=== PATIENT | male | born 1980 | race African-American/Black ===

== ENCOUNTER 2017-07-30 18:23 | Inpatient (IN) | payer OTHER ==
[2017-07-30] MEDS ORDERED: Sodium Chloride 0.9% 10 ML Syringe FLUSH PRN (18:35)
[2017-07-30] MEDS ORDERED: Sodium Chloride 0.9% 2,000 ML IV ONE (18:36)
--- NOTE | 2017-07-30 19:09 | EDM.PDOC ---
<ElsyBlue Gerardo - Last Filed: 07/30/17 22:42> ED HPI GENERAL MEDICAL PROBLEM - General Chief Complaint: Gastrointestinal Problem Stated Complaint: [facility] Time Seen by Provider: 07/30/17 18:35 - Related Data Allergies Allergy/AdvReac Type Severity Reaction Status Date / Time No Known Allergies Allergy Verified 07/30/17 19:25 Home Meds: Home Meds . [No Known Home Meds] 07/30/17 [History] Course - Vital Signs Last Recorded V/S: Last Vital Signs Temp 37.3 C 07/30/17 22:13 Pulse 120 H 07/31/17 06:46 Resp 20 07/31/17 04:00 BP 106/66 07/31/17 06:46 Pulse Ox 99 07/31/17 04:00 Orthostatic Blood Pressure [ 114/80 Standing] Orthostatic Blood Pressure [ 127/88 Sitting] Orthostatic Blood Pressure [ 128/75 Supine] - Orders/Labs/Meds Orders: Active Orders 24 hr Category Date Time Status Antiembolic Devices [RC] QSHIFT Care 07/30/17 22:14 Active Cardiac Monitoring [RC] CONTINUOUS Care 07/30/17 22:13 Active Height and Weight [RC] 04 Care 07/30/17 22:13 Active Intake and Output [RC] 04,16 Care 07/30/17 22:13 Active Notify Provider Consults [RC] ASDIRECTED Care 07/30/17 22:17 Active Oxygen Therapy [RC] PRN Care 07/30/17 22:13 Active Peripheral IV Care [RC] . DIRECTED Care 07/30/17 18:36 Active RT Aerosol Therapy [RC] ASDIRECTED Care 07/30/17 22:15 Active Up With Assistance [RC] ASDIRECTED Care 07/30/17 22:13 Active Up ad Theresa [RC] ASDIRECTED Care 07/30/17 22:13 Active VTE/DVT Education [RC] PER UNIT ROUTINE Care 07/30/17 22:13 Active Vital Signs [RC] Q4HR Care 07/30/17 22:13 Active Consult to Case Management [CONS] Routine Cons 07/30/17 22:16 Active Consult to Physician [CONS] Routine Cons 07/30/17 22:16 Active Consult to Flat Examiner [CONS] Routine Cons 07/30/17 22:16 Active Consult to Spiritual Care [CONS] Routine Cons 07/30/17 22:16 Active Nothing per Oral Now Diet [DIET] Diet 07/30/17 Dinner Active Abdomen Series w Chest 1V [CR] Stat Exams 07/30/17 18:37 Taken COMPREHENSIVE METABOLIC PN,CMP [CHEM] AM Lab 07/31/17 06:18 Received COMPREHENSIVE METABOLIC PN,CMP [CHEM] AM Lab 08/01/17 05:11 Ordered COMPREHENSIVE METABOLIC PN,CMP [CHEM] AM Lab 08/02/17 05:11 Ordered COMPREHENSIVE METABOLIC PN,CMP [CHEM] AM Lab 08/03/17 05:11 Ordered CULTURE BLOOD [BC] Stat Lab 07/30/17 18:52 Received CULTURE BLOOD [BC] Stat Lab 07/30/17 23:05 Results CULTURE STOOL + SHIGATOX [RM] Stat Lab 07/30/17 20:52 Results HEMOGLOBIN/HEMATOCRIT,HH [HEME] Routine Lab 07/31/17 12:00 Ordered MAGNESIUM [CHEM] AM Lab 07/31/17 06:18 Received MAGNESIUM [CHEM] AM Lab 08/01/17 05:11 Ordered MAGNESIUM [CHEM] AM Lab 08/02/17 05:11 Ordered MAGNESIUM [CHEM] AM Lab 08/03/17 05:11 Ordered Acetaminophen [Tylenol] Med 07/30/17 22:13 Active 650 mg PO Q4H PRN Acetaminophen/HYDROcodone [[place] 325-5 MG] Med 07/30/17 22:13 Active 1 tab PO Q4H PRN Albuterol/Ipratropium [DuoNeb 3.0-0.5 MG/3 ML] Med 07/30/17 22:13 Active 3 ml NEB Q4H PRN Dextrose 5%-0.45% NaCl [Dextrose 5%-1/2 NS] 1,000 ml Med 07/30/17 22:15 Active IV ASDIRECTED HYDROmorphone [Dilaudid] Med 07/30/17 22:13 Active 1 mg IVPUSH Q3H PRN LORazepam [Ativan] Med 07/30/17 22:13 Active 1 mg IV Q6H PRN LORazepam [Ativan] Med 07/30/17 22:18 Active 2 mg IVPUSH Q4H PRN Magnesium Rep Pharmacy to Dose [Pharmacy to Dose - Med 07/30/17 22:30 Active Magnesium Replacement] 1 dose .XX ASDIRECTED Metoprolol Tartrate [Lopressor] Med 07/30/17 22:18 Active 5 mg IVPUSH Q4H PRN Ondansetron [Zofran] Med 07/30/17 22:13 Active 4 mg IV Q6H PRN Pantoprazole [ProTONIX IV] Med 07/31/17 09:00 Active 40 mg IV Q12HR Potassium Rep Pharmacy to Dose [Pharmacy to Dose - Med 07/30/17 22:30 Active Potassium Replacement] 1 dose .XX ASDIRECTED Promethazine [Phenergan] 12.5 mg Med 07/30/17 22:13 Active Sodium Chloride 0.9% [Normal Saline] 50 ml IV Q6H Sodium Chloride 0.9% [Saline Flush] Med 07/30/17 18:35 Active 10 ml FLUSH ASDIRECTED PRN Temazepam [Restoril] Med 07/30/17 22:13 Active 15 mg PO BEDTIME PRN hydrALAZINE [Apresoline] Med 07/30/17 22:18 Active 20 mg IVPUSH Q4H PRN Blood Culture x2 Reflex Set [OM.PC] Stat Ot 07/30/17 18:35 Ordered NG [Nasogastric Orogastric Tube Insertion] [OM.PC] Ot 07/30/17 21:06 Ordered Routine Peripheral IV Insertion Adult [OM.PC] Routine Ot 07/30/17 18:35 Ordered Sequential Compression Device [OM.PC] Per Unit Routine Ot 07/30/17 22:13 Ordered Resuscitation Status Routine Resus Stat 07/30/17 22:13 Ordered Medication Orders Acetaminophen (Tylenol) 650 mg PO Q4H PRN PRN Reason: Pain (Mild 1-3)/fever Hydrocodone Bitart/Acetaminophen ([place] 325-5 Mg) 1 tab PO Q4H PRN PRN Reason: Pain (moderate 4-6) Albuterol/Ipratropium (Duoneb 3.0-0.5 Mg/3 Ml) 3 ml NEB Q4H PRN PRN Reason: Shortness Of Breath/wheezing Hydralazine HCl (Apresoline) 20 mg IVPUSH Q4H PRN PRN Reason: Hypertension Hydromorphone HCl (Dilaudid) 1 mg IVPUSH Q3H PRN PRN Reason: Pain (severe 7-10) Dextrose/Sodium Chloride (Dextrose 5%-1/2 Ns) 1,000 mls @ 125 mls/hr IV ASDIRECTED FLAKO Last Admin: 07/31/17 02:31 Dose: 125 mls/hr Promethazine HCl 12.5 mg/ (Sodium Chloride) 50.5 mls @ 100 mls/hr IV Q6H PRN PRN Reason: Nausea/Vomiting Lorazepam (Ativan) 1 mg IV Q6H PRN PRN Reason: Anxiety Last Admin: 07/31/17 06:16 Dose: 1 mg Admin: 07/30/17 23:26 Dose: 1 mg Lorazepam (Ativan) 2 mg IVPUSH Q4H PRN PRN Reason: Seizures Magnesium Sulfate (Pharmacy To Dose - Magnesium Replacement) 1 dose .XX ASDIRECTED [facility] Metoprolol Tartrate (Lopressor) 5 mg IVPUSH Q4H PRN PRN Reason: Tachycardia Last Admin: 07/31/17 06:46 Dose: 5 mg Admin: 07/30/17 23:54 Dose: 5 mg Ondansetron HCl (Zofran) 4 mg IV Q6H PRN PRN Reason: Nausea/Vomiting Pantoprazole Sodium (Protonix Iv) 40 mg IV Q12HR [facility] Potassium Chloride (Pharmacy To Dose - Potassium Replacement) 1 dose .XX ASDIRECTED [facility] Sodium Chloride (Saline Flush) 10 ml FLUSH ASDIRECTED PRN PRN Reason: Keep Vein Open Last Admin: 07/30/17 18:49 Dose: 10 ml Temazepam (Restoril) 15 mg PO BEDTIME PRN PRN Reason: Sleep Labs: Laboratory Tests 07/30/17 07/30/17 07/30/17 Range/Units 18:52 18:52 18:52 WBC 12.47 H (4.23-9.07) K/mm3 RBC 3.26 L (4.63-6.08) M/mm3 Hgb 10.3 L (13.7-17.5) gm/L Hct 30.1 L (40.1-51.0) % MCV 92.3 H (79.0-92.2) fl MCH 31.6 (25.7-32.2) pg MCHC 34.2 (32.2-35.5) g/dl RDW Std Deviation 38.8 (35.1-43.9) fL Plt Count 314 (163-337) K/mm3 MPV 9.7 (9.4-12.3) fl Neut % (Auto) 68.8 H (34.0-67.9) % Lymph % (Auto) 21.1 L (21.8-53.1) % [place] % (Auto) 9.1 (5.3-12.2) % Eos % (Auto) 0.6 L (0.8-7.0) Baso % (Auto) 0.2 (0.1-1.2) % Neut # (Auto) 8.59 H (1.78-5.38) K/mm3 Lymph # (Auto) 2.63 (1.32-3.57) K/mm3 [place] # (Auto) 1.13 H (0.30-0.82) K/mm3 Eos # (Auto) 0.07 (0.04-0.54) K/mm3 Baso # (Auto) 0.02 (0.01-0.08) K/mm3 PT 11.9 (8.0-13.0) SECONDS INR 1.09 APTT (22-36) SECONDS D-Dimer, Quantitative 0.37 (0.19-0.59) mg/L Sodium 137 (136-145) mEq/L Potassium 3.6 (3.5-5.1) mEq/L Chloride 105 (98-107) mEq/L Carbon Dioxide 23 (21-32) mEq/L Anion Gap 12.6 (5-15) BUN 28 H (7-18) mg/dL Creatinine 1.4 H (0.7-1.3) mg/dL Est Cr Clr Drug Dosing 70.57 mL/min Estimated GFR (MDRD) > 60 (>60) mL/min BUN/Creatinine Ratio 20.0 H (14-18) Glucose 136 H (74-106) mg/dL Lactic Acid (0.4-2.0) mmol/L Calcium 8.4 L (8.5-10.1) mg/dL Magnesium (1.8-2.4) mg/dl Total Bilirubin 0.3 (0.2-1.0) mg/dL AST 17 (15-37) U/L ALT 40 (16-63) U/L Alkaline Phosphatase 64 (46-116) U/L Troponin I 0.024 (0.00-0.056) ng/mL Total Protein 5.9 L (6.4-8.2) g/dl Albumin 2.8 L (3.4-5.0) g/dl Globulin 3.1 gm/dL Albumin/Globulin Ratio 0.9 L (1-2) Lipase (73-393) U/L Urine Color (Yellow) Urine Appearance (Clear) Urine pH (5.0-8.0) Ur Specific [place] (1.005-1.030) Urine Protein (Negative) Urine Glucose (UA) (Negative) Urine Ketones (Negative) Urine Occult Blood (Negative) Urine Nitrite (Negative) Urine Bilirubin (Negative) Urine Urobilinogen (0.2-1.0) Ur Leukocyte Esterase (Negative) Urine RBC (0-5) /hpf Urine WBC (0-5) /hpf Ur Epithelial Cells (0-5) /hpf Urine Bacteria (FEW) /hpf Urine Mucus (FEW) /hpf Salicylates (2.8-20) mg/dL Urine Opiates Screen (NEGATIVE) Ur Buprenorphine Scrn (NEGATIVE) Ur Oxycodone Screen (NEGATIVE) Urine Methadone Screen (NEGATIVE) Ur Propoxyphene Screen (NEGATIVE) Acetaminophen (10-30) ug/mL Ur Barbiturates Screen (NEGATIVE) Ur Tricyclics Screen (NEGATIVE) Ur Phencyclidine Scrn (NEGATIVE) Ur Amphetamine Screen (NEGATIVE) U Methamphetamines Scrn (NEGATIVE) U Benzodiazepines Scrn (NEGATIVE) U Cocaine Metab Screen (NEGATIVE) U Marijuana (THC) Screen (NEGATIVE) Ethyl Alcohol < 0.03 (0.00) gm% C.difficile 027-NAP1-B1 C. difficile Tox (PCR) Blood Type Gel Antibody Screen 07/30/17 07/30/17 07/30/17 Range/Units 18:52 18:52 18:52 WBC (4.23-9.07) K/mm3 RBC (4.63-6.08) M/mm3 Hgb (13.7-17.5) gm/L Hct (40.1-51.0) % MCV (79.0-92.2) fl MCH (25.7-32.2) pg MCHC (32.2-35.5) g/dl RDW Std Deviation (35.1-43.9) fL Plt Count (163-337) K/mm3 MPV (9.4-12.3) fl Neut % (Auto) (34.0-67.9) % Lymph % (Auto) (21.8-53.1) % [place] % (Auto) (5.3-12.2) % Eos % (Auto) (0.8-7.0) Baso % (Auto) (0.1-1.2) % Neut # (Auto) (1.78-5.38) K/mm3 Lymph # (Auto) (1.32-3.57) K/mm3 [place] # (Auto) (0.30-0.82) K/mm3 Eos # (Auto) (0.04-0.54) K/mm3 Baso # (Auto) (0.01-0.08) K/mm3 PT (8.0-13.0) SECONDS INR APTT 23 (22-36) SECONDS D-Dimer, Quantitative (0.19-0.59) mg/L Sodium (136-145) mEq/L Potassium (3.5-5.1) mEq/L Chloride (98-107) mEq/L Carbon Dioxide (21-32) mEq/L Anion Gap (5-15) BUN (7-18) mg/dL Creatinine (0.7-1.3) mg/dL Est Cr Clr Drug Dosing mL/min Estimated GFR (MDRD) (>60) mL/min BUN/Creatinine Ratio (14-18) Glucose (74-106) mg/dL Lactic Acid 2.9 H (0.4-2.0) mmol/L Calcium (8.5-10.1) mg/dL Magnesium (1.8-2.4) mg/dl Total Bilirubin (0.2-1.0) mg/dL AST (15-37) U/L ALT (16-63) U/L Alkaline Phosphatase (46-116) U/L Troponin I (0.00-0.056) ng/mL Total Protein (6.4-8.2) g/dl Albumin (3.4-5.0) g/dl Globulin gm/dL Albumin/Globulin Ratio (1-2) Lipase (73-393) U/L Urine Color (Yellow) Urine Appearance (Clear) Urine pH (5.0-8.0) Ur Specific [place] (1.005-1.030) Urine Protein (Negative) Urine Glucose (UA) (Negative) Urine Ketones (Negative) Urine Occult Blood (Negative) Urine Nitrite (Negative) Urine Bilirubin (Negative) Urine Urobilinogen (0.2-1.0) Ur Leukocyte Esterase (Negative) Urine RBC (0-5) /hpf Urine WBC (0-5) /hpf Ur Epithelial Cells (0-5) /hpf Urine Bacteria (FEW) /hpf Urine Mucus (FEW) /hpf Salicylates (2.8-20) mg/dL Urine Opiates Screen (NEGATIVE) Ur Buprenorphine Scrn (NEGATIVE) Ur Oxycodone Screen (NEGATIVE) Urine Methadone Screen (NEGATIVE) Ur Propoxyphene Screen (NEGATIVE) Acetaminophen (10-30) ug/mL Ur Barbiturates Screen (NEGATIVE) Ur Tricyclics Screen (NEGATIVE) Ur Phencyclidine Scrn (NEGATIVE) Ur Amphetamine Screen (NEGATIVE) U Methamphetamines Scrn (NEGATIVE) U Benzodiazepines Scrn (NEGATIVE) U Cocaine Metab Screen (NEGATIVE) U Marijuana (THC) Screen (NEGATIVE) Ethyl Alcohol (0.00) gm% C.difficile 027-NAP1-B1 C. difficile Tox (PCR) Blood Type A POSITIVE Gel Antibody Screen Negative 07/30/17 07/30/17 07/30/17 Range/Units 18:52 18:52 20:52 WBC (4.23-9.07) K/mm3 RBC (4.63-6.08) M/mm3 Hgb (13.7-17.5) gm/L Hct (40.1-51.0) % MCV (79.0-92.2) fl MCH (25.7-32.2) pg MCHC (32.2-35.5) g/dl RDW Std Deviation (35.1-43.9) fL Plt Count (163-337) K/mm3 MPV (9.4-12.3) fl Neut % (Auto) (34.0-67.9) % Lymph % (Auto) (21.8-53.1) % [place] % (Auto) (5.3-12.2) % Eos % (Auto) (0.8-7.0) Baso % (Auto) (0.1-1.2) % Neut # (Auto) (1.78-5.38) K/mm3 Lymph # (Auto) (1.32-3.57) K/mm3 [place] # (Auto) (0.30-0.82) K/mm3 Eos # (Auto) (0.04-0.54) K/mm3 Baso # (Auto) (0.01-0.08) K/mm3 PT (8.0-13.0) SECONDS INR APTT (22-36) SECONDS D-Dimer, Quantitative (0.19-0.59) mg/L Sodium (136-145) mEq/L Potassium (3.5-5.1) mEq/L Chloride (98-107) mEq/L Carbon Dioxide (21-32) mEq/L Anion Gap (5-15) BUN (7-18) mg/dL Creatinine (0.7-1.3) mg/dL Est Cr Clr Drug Dosing mL/min Estimated GFR (MDRD) (>60) mL/min BUN/Creatinine Ratio (14-18) Glucose (74-106) mg/dL Lactic Acid (0.4-2.0) mmol/L Calcium (8.5-10.1) mg/dL Magnesium 1.7 L (1.8-2.4) mg/dl Total Bilirubin (0.2-1.0) mg/dL AST (15-37) U/L ALT (16-63) U/L Alkaline Phosphatase (46-116) U/L Troponin I (0.00-0.056) ng/mL Total Protein (6.4-8.2) g/dl Albumin (3.4-5.0) g/dl Globulin gm/dL Albumin/Globulin Ratio (1-2) Lipase 73 (73-393) U/L Urine Color (Yellow) Urine Appearance (Clear) Urine pH (5.0-8.0) Ur Specific [place] (1.005-1.030) Urine Protein (Negative) Urine Glucose (UA) (Negative) Urine Ketones (Negative) Urine Occult Blood (Negative) Urine Nitrite (Negative) Urine Bilirubin (Negative) Urine Urobilinogen (0.2-1.0) Ur Leukocyte Esterase (Negative) Urine RBC (0-5) /hpf Urine WBC (0-5) /hpf Ur Epithelial Cells (0-5) /hpf Urine Bacteria (FEW) /hpf Urine Mucus (FEW) /hpf Salicylates 0.8 L (2.8-20) mg/dL Urine Opiates Screen (NEGATIVE) Ur Buprenorphine Scrn (NEGATIVE) Ur Oxycodone Screen (NEGATIVE) Urine Methadone Screen (NEGATIVE) Ur Propoxyphene Screen (NEGATIVE) Acetaminophen 3 L (10-30) ug/mL Ur Barbiturates Screen (NEGATIVE) Ur Tricyclics Screen (NEGATIVE) Ur Phencyclidine Scrn (NEGATIVE) Ur Amphetamine Screen (NEGATIVE) U Methamphetamines Scrn (NEGATIVE) U Benzodiazepines Scrn (NEGATIVE) U Cocaine Metab Screen (NEGATIVE) U Marijuana (THC) Screen (NEGATIVE) Ethyl Alcohol (0.00) gm% C.difficile 027-NAP1-B1 Presumptive negative C. difficile Tox (PCR) Negative Blood Type Gel Antibody Screen 07/30/17 07/30/17 Range/Units 21:00 21:00 WBC (4.23-9.07) K/mm3 RBC (4.63-6.08) M/mm3 Hgb (13.7-17.5) gm/L Hct (40.1-51.0) % MCV (79.0-92.2) fl MCH (25.7-32.2) pg MCHC (32.2-35.5) g/dl RDW Std Deviation (35.1-43.9) fL Plt Count (163-337) K/mm3 MPV (9.4-12.3) fl Neut % (Auto) (34.0-67.9) % Lymph % (Auto) (21.8-53.1) % [place] % (Auto) (5.3-12.2) % Eos % (Auto) (0.8-7.0) Baso % (Auto) (0.1-1.2) % Neut # (Auto) (1.78-5.38) K/mm3 Lymph # (Auto) (1.32-3.57) K/mm3 [place] # (Auto) (0.30-0.82) K/mm3 Eos # (Auto) (0.04-0.54) K/mm3 Baso # (Auto) (0.01-0.08) K/mm3 PT (8.0-13.0) SECONDS INR APTT (22-36) SECONDS D-Dimer, Quantitative (0.19-0.59) mg/L Sodium (136-145) mEq/L Potassium (3.5-5.1) mEq/L Chloride (98-107) mEq/L Carbon Dioxide (21-32) mEq/L Anion Gap (5-15) BUN (7-18) mg/dL Creatinine (0.7-1.3) mg/dL Est Cr Clr Drug Dosing mL/min Estimated GFR (MDRD) (>60) mL/min BUN/Creatinine Ratio (14-18) Glucose (74-106) mg/dL Lactic Acid (0.4-2.0) mmol/L Calcium (8.5-10.1) mg/dL Magnesium (1.8-2.4) mg/dl Total Bilirubin (0.2-1.0) mg/dL AST (15-37) U/L ALT (16-63) U/L Alkaline Phosphatase (46-116) U/L Troponin I (0.00-0.056) ng/mL Total Protein (6.4-8.2) g/dl Albumin (3.4-5.0) g/dl Globulin gm/dL Albumin/Globulin Ratio (1-2) Lipase (73-393) U/L Urine Color Yellow (Yellow) Urine Appearance Clear (Clear) Urine pH 6.0 (5.0-8.0) Ur Specific [place] 1.025 (1.005-1.030) Urine Protein Trace H (Negative) Urine Glucose (UA) Negative (Negative) Urine Ketones Negative (Negative) Urine Occult Blood Negative (Negative) Urine Nitrite Negative (Negative) Urine Bilirubin Negative (Negative) Urine Urobilinogen 0.2 (0.2-1.0) Ur Leukocyte Esterase Negative (Negative) Urine RBC 0-5 (0-5) /hpf Urine WBC 0-5 (0-5) /hpf Ur Epithelial Cells 0-5 (0-5) /hpf Urine Bacteria Few (FEW) /hpf Urine Mucus Few (FEW) /hpf Salicylates (2.8-20) mg/dL Urine Opiates Screen Negative (NEGATIVE) Ur Buprenorphine Scrn Negative (NEGATIVE) Ur Oxycodone Screen Negative (NEGATIVE) Urine Methadone Screen Negative (NEGATIVE) Ur Propoxyphene Screen Negative (NEGATIVE) Acetaminophen (10-30) ug/mL Ur Barbiturates Screen Negative (NEGATIVE) Ur Tricyclics Screen Negative (NEGATIVE) Ur Phencyclidine Scrn Negative (NEGATIVE) Ur Amphetamine Screen Negative (NEGATIVE) U Methamphetamines Scrn Negative (NEGATIVE) U Benzodiazepines Scrn Negative (NEGATIVE) U Cocaine Metab Screen Negative (NEGATIVE) U Marijuana (THC) Screen Presumptive positive H (NEGATIVE) Ethyl Alcohol (0.00) gm% C.difficile 027-NAP1-B1 C. difficile Tox (PCR) Blood Type Gel Antibody Screen Meds: Medications Generic Name Dose Route Start Last Admin Trade Name Freq PRN Reason Stop Dose Admin Acetaminophen 650 mg 07/30/17 22:13 Tylenol PO Q4H PRN Pain (Mild 1-3)/fever Hydrocodone Bitart/Acetaminophen 1 tab 07/30/17 22:13 [place] 325-5 Mg PO Q4H PRN Pain (moderate 4-6) Albuterol/Ipratropium 3 ml 07/30/17 22:13 Duoneb 3.0-0.5 Mg/3 Ml NEB Q4H PRN Shortness Of Breath/wheezing Hydralazine HCl 20 mg 07/30/17 22:18 Apresoline IVPUSH Q4H PRN Hypertension Hydromorphone HCl 1 mg 07/30/17 22:13 Dilaudid IVPUSH Q3H PRN Pain (severe 7-10) Dextrose/Sodium Chloride 1,000 mls @ 125 mls/hr 07/30/17 22:15 07/31/17 02:31 Dextrose 5%-1/2 Ns IV 125 mls/hr ASDIRECTED FLAKO Administration Promethazine HCl 12.5 mg/ 50.5 mls @ 100 mls/hr 07/30/17 22:13 Sodium Chloride IV Q6H PRN Nausea/Vomiting Lorazepam 1 mg 07/30/17 22:13 07/31/17 06:16 Ativan IV 1 mg Q6H PRN Administration Anxiety Lorazepam 2 mg 07/30/17 22:18 Ativan IVPUSH Q4H PRN Seizures Magnesium Sulfate 1 dose 07/30/17 22:30 Pharmacy To Dose - Magnesium Replacement .XX ASDIRECTED FLAKO Metoprolol Tartrate 5 mg 07/30/17 22:18 07/31/17 06:46 Lopressor IVPUSH 5 mg Q4H PRN Administration Tachycardia Ondansetron HCl 4 mg 07/30/17 22:13 Zofran IV Q6H PRN Nausea/Vomiting Pantoprazole Sodium 40 mg 07/31/17 09:00 Protonix Iv IV Q12HR FLAKO Potassium Chloride 1 dose 07/30/17 22:30 Pharmacy To Dose - Potassium Replacement .XX ASDIRECTED FLAKO Sodium Chloride 10 ml 07/30/17 18:35 07/30/17 18:49 Saline Flush FLUSH 10 ml ASDIRECTED PRN Administration Keep Vein Open Temazepam 15 mg 07/30/17 22:13 Restoril PO BEDTIME PRN Sleep Discontinued Medications Generic Name Dose Route Start Last Admin Trade Name Freq PRN Reason Stop Dose Admin Sodium Chloride 2,000 mls @ 2,000 mls/hr 07/30/17 18:36 07/30/17 18:48 Normal Saline IV 07/30/17 19:35 2,000 mls/hr ONETIME ONE Administration Lactated Ringer's 1,000 mls @ 250 mls/hr 07/30/17 20:45 07/30/17 21:45 Ringers, Lactated IV 07/31/17 00:45 250 mls/hr ASDIRECTED FLAKO Administration Pantoprazole Sodium 80 mg/ 100 mls @ 10 mls/hr 07/30/17 21:15 07/30/17 21:52 Sodium Chloride IV 8 mg/hr Q10H FLAKO 10 mls/hr 8 MG/HR Administration Magnesium Sulfate 2 gm/ Premix 50 mls @ 25 mls/hr 07/30/17 22:22 07/30/17 23: 24 IV 07/31/17 00:21 25 mls/hr ONETIME ONE Administration Pantoprazole Sodium 80 mg 07/30/17 19:15 07/30/17 19:23 Protonix Iv IVPUSH 07/30/17 19:16 80 mg .BOLUS ONE Administration - Re-Assessments/Exams Free Text/Narrative Re-Assessment/Exam: 07/30/17 20:10 Assumed care of the patient from Dr. Beata Phillip. The patient is orthostatic. He is currently receiving a 2 L IV fluid bolus. 07/30/17 20:30 Abdominal series with portable chest radiograph appears to be grossly unremarkable. Cardiac silhouette is within normal limits. No pulmonary vascular congestion. No pleural effusions. No focal infiltrate. No pneumothorax. Nonspecific bowel gas pattern. No free air. Formal read per the Radiologist pending. 07/30/17 22:02 Notified by nurse Marietta that the NG tube is draining a mixture of red blood and coffee grounds, confirming an upper GI bleed. The stool sample that was sent to the lab will be tested for C. difficile, however, it will not be ready until 23:00 or so. I asked the lab to notify the floor if positive. Case discussed with Dr. Maldonado at 21:59. He accepts the patient for admission to the ICU. Departure - Departure Time of Disposition: 22:02 Disposition: Admitted As Inpatient 67 Condition: Serious Clinical Impression: Upper GI bleed, Orthostatic hypotension - Discharge Information - My Orders Last 24 Hours: My Active Orders 07/30/17 18:35 Sodium Chloride 0.9% [Saline Flush] 10 ml FLUSH ASDIRECTED PRN Blood Culture x2 Reflex Set [OM.PC] Stat Peripheral IV Insertion Adult [OM.PC] Routine 07/30/17 18:36 Peripheral IV Care [RC] . DIRECTED 07/30/17 18:37 Abdomen Series w Chest 1V [CR] Stat 07/30/17 18:52 CULTURE BLOOD [BC] Stat 07/30/17 20:52 CULTURE STOOL + SHIGATOX [RM] Stat 07/30/17 23:05 CULTURE BLOOD [BC] Stat - Assessment/Plan Last 24 Hours: My Active Orders 07/30/17 18:35 Sodium Chloride 0.9% [Saline Flush] 10 ml FLUSH ASDIRECTED PRN Blood Culture x2 Reflex Set [OM.PC] Stat Peripheral IV Insertion Adult [OM.PC] Routine 07/30/17 18:36 Peripheral IV Care [RC] . DIRECTED 07/30/17 18:37 Abdomen Series w Chest 1V [CR] Stat 07/30/17 18:52 CULTURE BLOOD [BC] Stat 07/30/17 20:52 CULTURE STOOL + SHIGATOX [RM] Stat 07/30/17 23:05 CULTURE BLOOD [BC] Stat <Mercedes Kirkland - Last Filed: 07/31/17 07:43> ED HPI GENERAL MEDICAL PROBLEM - General Source of Information: Reports: Patient History Limitations: Reports: No Limitations - History of Present Illness INITIAL COMMENTS - FREE TEXT/NARRATIVE: The patient is a 37-year-old male who is brought in by ambulance from [facility] for an episode of near syncope. According to the patient, he's been feeling ill since last night. He has had vomiting and diarrhea last night and today. He states that he had about 5 episodes of vomiting and diarrhea last night. At some point noticed blood in both the vomit and the stool, not able to distinguish whether this is been continuous or started after vomiting. He also has abdominal pain. Abdominal pain is diffuse and crampy. No fever. Feels generally weak. According to [facility] staff, the patient was in bed most of today. He got up to go to the bathroom, felt lightheaded, and nearly passed out. He didn't fall. He did not hit his head. When EMS arrived at the scene, his heart rate was in the 170s. Per EMS, initial blood pressure was 80s over 50s. The patient states that he has been having some chest pain over the last week or 2 as well, this is a vague substernal discomfort, "feels like a hole in my heart" . Denies shortness of breath. Nursing Home staff has been giving aspirin. No recent travel. No known exposure to contaminated food or water. Patient denies history of similar symptoms previously. Denies additional blood thinner use. 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 Denies: Fever HEENT: Reports: No Symptoms Respiratory: Denies: Shortness of Breath Cardiovascular: Reports: Chest Pain Endocrine: Reports: Fatigue GI/Abdominal: Reports: Abdominal Pain, Bloody Stool, Diarrhea, Vomiting : Reports: No Symptoms Musculoskeletal: Reports: No Symptoms Skin: Reports: No Symptoms Neurological: Reports: No Symptoms ED EXAM, GI/ABD - Physical Exam Exam: See Below Exam Limited By: No Limitations General Appearance: Alert, Mild Distress, Other Eyes: Bilateral: Normal Appearance Ears: Normal External Exam Nose: Normal Inspection Throat/Mouth: Normal Inspection, Normal Voice, No Airway Compromise Head: Atraumatic, Normocephalic Neck: Normal Inspection Respiratory/Chest: No Respiratory Distress, Lungs Clear, Normal Breath Sounds Cardiovascular: Tachycardia, Other (Regular rhythm) GI/Abdominal Exam: Soft, Other (Mild tenderness diffusely, no rebound or guarding) Rectal (Males) Exam: Normal Rectal Tone, Heme + Stool, Other (Melanotic stool) Back Exam: Normal Inspection Extremities: Normal Inspection Neurological: Alert, Oriented, Normal Cognition, No Motor/Sensory Deficits Psychiatric: Normal Affect, Normal Mood Skin Exam: Warm, Dry, Intact, Normal Color, No Rash Course - Orders/Labs/Meds Labs: Laboratory Tests 07/30/17 07/30/17 07/30/17 Range/Units 18:52 18:52 18:52 WBC 12.47 H (4.23-9.07) K/mm3 RBC 3.26 L (4.63-6.08) M/mm3 Hgb 10.3 L (13.7-17.5) gm/L Hct 30.1 L (40.1-51.0) % MCV 92.3 H (79.0-92.2) fl MCH 31.6 (25.7-32.2) pg MCHC 34.2 (32.2-35.5) g/dl RDW Std Deviation 38.8 (35.1-43.9) fL Plt Count 314 (163-337) K/mm3 MPV 9.7 (9.4-12.3) fl Neut % (Auto) 68.8 H (34.0-67.9) % Lymph % (Auto) 21.1 L (21.8-53.1) % [place] % (Auto) 9.1 (5.3-12.2) % Eos % (Auto) 0.6 L (0.8-7.0) Baso % (Auto) 0.2 (0.1-1.2) % Neut # (Auto) 8.59 H (1.78-5.38) K/mm3 Lymph # (Auto) 2.63 (1.32-3.57) K/mm3 [place] # (Auto) 1.13 H (0.30-0.82) K/mm3 Eos # (Auto) 0.07 (0.04-0.54) K/mm3 Baso # (Auto) 0.02 (0.01-0.08) K/mm3 PT 11.9 (8.0-13.0) SECONDS INR 1.09 APTT (22-36) SECONDS D-Dimer, Quantitative 0.37 (0.19-0.59) mg/L Sodium 137 (136-145) mEq/L Potassium 3.6 (3.5-5.1) mEq/L Chloride 105 (98-107) mEq/L Carbon Dioxide 23 (21-32) mEq/L Anion Gap 12.6 (5-15) BUN 28 H (7-18) mg/dL Creatinine 1.4 H (0.7-1.3) mg/dL Est Cr Clr Drug Dosing 70.57 mL/min Estimated GFR (MDRD) > 60 (>60) mL/min BUN/Creatinine Ratio 20.0 H (14-18) Glucose 136 H (74-106) mg/dL Lactic Acid (0.4-2.0) mmol/L Calcium 8.4 L (8.5-10.1) mg/dL Magnesium (1.8-2.4) mg/dl Total Bilirubin 0.3 (0.2-1.0) mg/dL AST 17 (15-37) U/L ALT 40 (16-63) U/L Alkaline Phosphatase 64 (46-116) U/L Troponin I 0.024 (0.00-0.056) ng/mL Total Protein 5.9 L (6.4-8.2) g/dl Albumin 2.8 L (3.4-5.0) g/dl Globulin 3.1 gm/dL Albumin/Globulin Ratio 0.9 L (1-2) Lipase (73-393) U/L Urine Color (Yellow) Urine Appearance (Clear) Urine pH (5.0-8.0) Ur Specific [place] (1.005-1.030) Urine Protein (Negative) Urine Glucose (UA) (Negative) Urine Ketones (Negative) Urine Occult Blood (Negative) Urine Nitrite (Negative) Urine Bilirubin (Negative) Urine Urobilinogen (0.2-1.0) Ur Leukocyte Esterase (Negative) Urine RBC (0-5) /hpf Urine WBC (0-5) /hpf Ur Epithelial Cells (0-5) /hpf Urine Bacteria (FEW) /hpf Urine Mucus (FEW) /hpf Salicylates (2.8-20) mg/dL Urine Opiates Screen (NEGATIVE) Ur Buprenorphine Scrn (NEGATIVE) Ur Oxycodone Screen (NEGATIVE) Urine Methadone Screen (NEGATIVE) Ur Propoxyphene Screen (NEGATIVE) Acetaminophen (10-30) ug/mL Ur Barbiturates Screen (NEGATIVE) Ur Tricyclics Screen (NEGATIVE) Ur Phencyclidine Scrn (NEGATIVE) Ur Amphetamine Screen (NEGATIVE) U Methamphetamines Scrn (NEGATIVE) U Benzodiazepines Scrn (NEGATIVE) U Cocaine Metab Screen (NEGATIVE) U Marijuana (THC) Screen (NEGATIVE) Ethyl Alcohol < 0.03 (0.00) gm% C.difficile 027-NAP1-B1 C. difficile Tox (PCR) Blood Type Gel Antibody Screen 07/30/17 07/30/17 07/30/17 Range/Units 18:52 18:52 18:52 WBC (4.23-9.07) K/mm3 RBC (4.63-6.08) M/mm3 Hgb (13.7-17.5) gm/L Hct (40.1-51.0) % MCV (79.0-92.2) fl MCH (25.7-32.2) pg MCHC (32.2-35.5) g/dl RDW Std Deviation (35.1-43.9) fL Plt Count (163-337) K/mm3 MPV (9.4-12.3) fl Neut % (Auto) (34.0-67.9) % Lymph % (Auto) (21.8-53.1) % [place] % (Auto) (5.3-12.2) % Eos % (Auto) (0.8-7.0) Baso % (Auto) (0.1-1.2) % Neut # (Auto) (1.78-5.38) K/mm3 Lymph # (Auto) (1.32-3.57) K/mm3 [place] # (Auto) (0.30-0.82) K/mm3 Eos # (Auto) (0.04-0.54) K/mm3 Baso # (Auto) (0.01-0.08) K/mm3 PT (8.0-13.0) SECONDS INR APTT 23 (22-36) SECONDS D-Dimer, Quantitative (0.19-0.59) mg/L Sodium (136-145) mEq/L Potassium (3.5-5.1) mEq/L Chloride (98-107) mEq/L Carbon Dioxide (21-32) mEq/L Anion Gap (5-15) BUN (7-18) mg/dL Creatinine (0.7-1.3) mg/dL Est Cr Clr Drug Dosing mL/min Estimated GFR (MDRD) (>60) mL/min BUN/Creatinine Ratio (14-18) Glucose (74-106) mg/dL Lactic Acid 2.9 H (0.4-2.0) mmol/L Calcium (8.5-10.1) mg/dL Magnesium (1.8-2.4) mg/dl Total Bilirubin (0.2-1.0) mg/dL AST (15-37) U/L ALT (16-63) U/L Alkaline Phosphatase (46-116) U/L Troponin I (0.00-0.056) ng/mL Total Protein (6.4-8.2) g/dl Albumin (3.4-5.0) g/dl Globulin gm/dL Albumin/Globulin Ratio (1-2) Lipase (73-393) U/L Urine Color (Yellow) Urine Appearance (Clear) Urine pH (5.0-8.0) Ur Specific [place] (1.005-1.030) Urine Protein (Negative) Urine Glucose (UA) (Negative) Urine Ketones (Negative) Urine Occult Blood (Negative) Urine Nitrite (Negative) Urine Bilirubin (Negative) Urine Urobilinogen (0.2-1.0) Ur Leukocyte Esterase (Negative) Urine RBC (0-5) /hpf Urine WBC (0-5) /hpf Ur Epithelial Cells (0-5) /hpf Urine Bacteria (FEW) /hpf Urine Mucus (FEW) /hpf Salicylates (2.8-20) mg/dL Urine Opiates Screen (NEGATIVE) Ur Buprenorphine Scrn (NEGATIVE) Ur Oxycodone Screen (NEGATIVE) Urine Methadone Screen (NEGATIVE) Ur Propoxyphene Screen (NEGATIVE) Acetaminophen (10-30) ug/mL Ur Barbiturates Screen (NEGATIVE) Ur Tricyclics Screen (NEGATIVE) Ur Phencyclidine Scrn (NEGATIVE) Ur Amphetamine Screen (NEGATIVE) U Methamphetamines Scrn (NEGATIVE) U Benzodiazepines Scrn (NEGATIVE) U Cocaine Metab Screen (NEGATIVE) U Marijuana (THC) Screen (NEGATIVE) Ethyl Alcohol (0.00) gm% C.difficile 027-NAP1-B1 C. difficile Tox (PCR) Blood Type A POSITIVE Gel Antibody Screen Negative 07/30/17 07/30/17 07/30/17 Range/Units 18:52 18:52 20:52 WBC (4.23-9.07) K/mm3 RBC (4.63-6.08) M/mm3 Hgb (13.7-17.5) gm/L Hct (40.1-51.0) % MCV (79.0-92.2) fl MCH (25.7-32.2) pg MCHC (32.2-35.5) g/dl RDW Std Deviation (35.1-43.9) fL Plt Count (163-337) K/mm3 MPV (9.4-12.3) fl Neut % (Auto) (34.0-67.9) % Lymph % (Auto) (21.8-53.1) % [place] % (Auto) (5.3-12.2) % Eos % (Auto) (0.8-7.0) Baso % (Auto) (0.1-1.2) % Neut # (Auto) (1.78-5.38) K/mm3 Lymph # (Auto) (1.32-3.57) K/mm3 [place] # (Auto) (0.30-0.82) K/mm3 Eos # (Auto) (0.04-0.54) K/mm3 Baso # (Auto) (0.01-0.08) K/mm3 PT (8.0-13.0) SECONDS INR APTT (22-36) SECONDS D-Dimer, Quantitative (0.19-0.59) mg/L Sodium (136-145) mEq/L Potassium (3.5-5.1) mEq/L Chloride (98-107) mEq/L Carbon Dioxide (21-32) mEq/L Anion Gap (5-15) BUN (7-18) mg/dL Creatinine (0.7-1.3) mg/dL Est Cr Clr Drug Dosing mL/min Estimated GFR (MDRD) (>60) mL/min BUN/Creatinine Ratio (14-18) Glucose (74-106) mg/dL Lactic Acid (0.4-2.0) mmol/L Calcium (8.5-10.1) mg/dL Magnesium 1.7 L (1.8-2.4) mg/dl Total Bilirubin (0.2-1.0) mg/dL AST (15-37) U/L ALT (16-63) U/L Alkaline Phosphatase (46-116) U/L Troponin I (0.00-0.056) ng/mL Total Protein (6.4-8.2) g/dl Albumin (3.4-5.0) g/dl Globulin gm/dL Albumin/Globulin Ratio (1-2) Lipase 73 (73-393) U/L Urine Color (Yellow) Urine Appearance (Clear) Urine pH (5.0-8.0) Ur Specific [place] (1.005-1.030) Urine Protein (Negative) Urine Glucose (UA) (Negative) Urine Ketones (Negative) Urine Occult Blood (Negative) Urine Nitrite (Negative) Urine Bilirubin (Negative) Urine Urobilinogen (0.2-1.0) Ur Leukocyte Esterase (Negative) Urine RBC (0-5) /hpf Urine WBC (0-5) /hpf Ur Epithelial Cells (0-5) /hpf Urine Bacteria (FEW) /hpf Urine Mucus (FEW) /hpf Salicylates 0.8 L (2.8-20) mg/dL Urine Opiates Screen (NEGATIVE) Ur Buprenorphine Scrn (NEGATIVE) Ur Oxycodone Screen (NEGATIVE) Urine Methadone Screen (NEGATIVE) Ur Propoxyphene Screen (NEGATIVE) Acetaminophen 3 L (10-30) ug/mL Ur Barbiturates Screen (NEGATIVE) Ur Tricyclics Screen (NEGATIVE) Ur Phencyclidine Scrn (NEGATIVE) Ur Amphetamine Screen (NEGATIVE) U Methamphetamines Scrn (NEGATIVE) U Benzodiazepines Scrn (NEGATIVE) U Cocaine Metab Screen (NEGATIVE) U Marijuana (THC) Screen (NEGATIVE) Ethyl Alcohol (0.00) gm% C.difficile [id number] Presumptive negative C. difficile Tox (PCR) Negative Blood Type Gel Antibody Screen 07/30/17 07/30/17 Range/Units 21:00 21:00 WBC (4.23-9.07) K/mm3 RBC (4.63-6.08) M/mm3 Hgb (13.7-17.5) gm/L Hct (40.1-51.0) % MCV (79.0-92.2) fl MCH (25.7-32.2) pg MCHC (32.2-35.5) g/dl RDW Std Deviation (35.1-43.9) fL Plt Count (163-337) K/mm3 MPV (9.4-12.3) fl Neut % (Auto) (34.0-67.9) % Lymph % (Auto) (21.8-53.1) % [place] % (Auto) (5.3-12.2) % Eos % (Auto) (0.8-7.0) Baso % (Auto) (0.1-1.2) % Neut # (Auto) (1.78-5.38) K/mm3 Lymph # (Auto) (1.32-3.57) K/mm3 [place] # (Auto) (0.30-0.82) K/mm3 Eos # (Auto) (0.04-0.54) K/mm3 Baso # (Auto) (0.01-0.08) K/mm3 PT (8.0-13.0) SECONDS INR APTT (22-36) SECONDS D-Dimer, Quantitative (0.19-0.59) mg/L Sodium (136-145) mEq/L Potassium (3.5-5.1) mEq/L Chloride (98-107) mEq/L Carbon Dioxide (21-32) mEq/L Anion Gap (5-15) BUN (7-18) mg/dL Creatinine (0.7-1.3) mg/dL Est Cr Clr Drug Dosing mL/min Estimated GFR (MDRD) (>60) mL/min BUN/Creatinine Ratio (14-18) Glucose (74-106) mg/dL Lactic Acid (0.4-2.0) mmol/L Calcium (8.5-10.1) mg/dL Magnesium (1.8-2.4) mg/dl Total Bilirubin (0.2-1.0) mg/dL AST (15-37) U/L ALT (16-63) U/L Alkaline Phosphatase (46-116) U/L Troponin I (0.00-0.056) ng/mL Total Protein (6.4-8.2) g/dl Albumin (3.4-5.0) g/dl Globulin gm/dL Albumin/Globulin Ratio (1-2) Lipase (73-393) U/L Urine Color Yellow (Yellow) Urine Appearance Clear (Clear) Urine pH 6.0 (5.0-8.0) Ur Specific [place] 1.025 (1.005-1.030) Urine Protein Trace H (Negative) Urine Glucose (UA) Negative (Negative) Urine Ketones Negative (Negative) Urine Occult Blood Negative (Negative) Urine Nitrite Negative (Negative) Urine Bilirubin Negative (Negative) Urine Urobilinogen 0.2 (0.2-1.0) Ur Leukocyte Esterase Negative (Negative) Urine RBC 0-5 (0-5) /hpf Urine WBC 0-5 (0-5) /hpf Ur Epithelial Cells 0-5 (0-5) /hpf Urine Bacteria Few (FEW) /hpf Urine Mucus Few (FEW) /hpf Salicylates (2.8-20) mg/dL Urine Opiates Screen Negative (NEGATIVE) Ur Buprenorphine Scrn Negative (NEGATIVE) Ur Oxycodone Screen Negative (NEGATIVE) Urine Methadone Screen Negative (NEGATIVE) Ur Propoxyphene Screen Negative (NEGATIVE) Acetaminophen (10-30) ug/mL Ur Barbiturates Screen Negative (NEGATIVE) Ur Tricyclics Screen Negative (NEGATIVE) Ur Phencyclidine Scrn Negative (NEGATIVE) Ur Amphetamine Screen Negative (NEGATIVE) U Methamphetamines Scrn Negative (NEGATIVE) U Benzodiazepines Scrn Negative (NEGATIVE) U Cocaine Metab Screen Negative (NEGATIVE) U Marijuana (THC) Screen Presumptive positive H (NEGATIVE) Ethyl Alcohol (0.00) gm% C.difficile 027-NAP1-B1 C. difficile Tox (PCR) Blood Type Gel Antibody Screen - Re-Assessments/Exams Free Text/Narrative Re-Assessment/Exam: 07/30/17 19:15 Stool is melanotic. Pantoprazole ordered. Heart rate currently in the 120s, blood pressure is been normal throughout emergency department stay. Patient has not had any bowel movement or vomiting so far while in the department. Labs are all in process. Care will be turned over to Dr. Chin. Critical Care Note - Critical Care Note Total Time (mins): 35
[2017-07-30] MEDS ORDERED: Pantoprazole 40 MG Vial IVPUSH ONE (19:15)
[2017-07-30] MEDS ORDERED: Lactated Ringers 1,000 ML IV SCH (20:45)
[2017-07-30] MEDS ORDERED: Pantoprazole 80 MG in Sodium Chloride 0.9% 100 ML IV SCH (21:15)
--- NOTE | 2017-07-30 22:04 | PCM.HP ---
H&P History of Present Illness - General Date of Service: 07/30/17 Admit Problem/Dx: Melena Source of Information: Patient, Old Records, Provider, RN Notes Reviewed History Limitations: Reports: No Limitations - History of Present Illness Initial Comments - Free Text/Narative: This is 37 yo black male with no significant past medical hx/o who comes for evaluation of near syncopal episode associated with abdominal pain, chest pain, vomiting and diarrhea that started last night and was found to have pos coffee- ground gastric suction via NGT. Patient reports 5 episode of vomiting and diarrhea as well as melenic stools. Patient described his abdominal pain as crampy in nature. He denies any fever or chills but he feels weak and lightheadedness. When medical help arrived at the scene, he was found with a fast heart rate as high as in the 170s. At that time, he was also found to have profoundly low blood pressure noted in the 80s over 50s. Patient reports no hx/o PUD or GERD. He denies ETOH or NSAIDs use. He is not on anti-coags. However he was given ASA in intermediate. He denies any recent travel. No unusual diet or drinks. No sick contact. He denies any recent surgery or trauma. His initial work up in ED shows a CBC remarkable for WBC showed 12. Her 7, RBC of 3.6, hemoglobin of 10.3, hematocrit 30.1, MCV of 92.3, neutrophils 68.8% lymphocytes of 21.1% and eosinophils of 0.6%. PT is 11.9, INR is 1.09 APTT is 23 and d-dimer is 0.37. His chemistry is remarkable for BUN of 28 creatinine of 1.4, glucose of 136, lactic acid of 2.9, calcium 8.4, magnesium 1.7, total protein of 5.9 and albumin 2.8. His lipase is 73. UA is negative for UTI. His blood alcohol level is less than 0.03. His UDS is positive for THC. His chest/ abdominal abdominal x-ray shows no acute abnormal finding. Patient is being admitted for near syncopal episode associated with hypotension from GI bleed. He is full code. Chest Pain Score (Numeric/FACES): 8 Abdomen Pain Score (Numeric/FACES): 4 - Related Data Allergies/Adverse Reactions: Allergies Allergy/AdvReac Type Severity Reaction Status Date / Time No Known Allergies Allergy Verified 07/30/17 19:25 Home Medications: Home Meds . [No Known Home Meds] 07/30/17 [History] Past Medical History Respiratory History: Reports: Asthma Social & Family History - Family History Family Medical History: Noncontributory - Tobacco Use Smoking Status *Q: Unknown Ever Smoked - Recreational Drug Use Recreational Drug Use: No H&P Review of Systems - Review of Systems: Review Of Systems: See Below General: Reports: Malaise, Weakness, Fatigue. Denies: Fever, Chills HEENT: Reports: No Symptoms Pulmonary: Denies: Shortness of Breath, Pleuritic Chest Pain, Cough, Sputum, Hemoptysis Cardiovascular: Reports: Chest Pain. Denies: Palpitations, Dyspnea on Exertion , Orthopnea, Lightheadedness, Syncope, Claudication, Blood Pressure Problem Gastrointestinal: Reports: Abdominal Pain, Flatus. Denies: Constipation, Diarrhea, Decreased Appetite, Nausea, Vomiting Genitourinary: Reports: No Symptoms Musculoskeletal: Reports: No Symptoms Skin: Denies: Cyanosis, Jaundice, Pallor, Diaphoresis Psychiatric: Denies: Confusion, Depression, Mood Lability, Anxiety, Agitation, Cravings, Hallucinations, Suicidal Ideation, Homicidal Ideation, Hallucinations (Visual) Neurological: Reports: Difficulty Walking, Gait Disturbance, Other (Patient is in shackles). Denies: Confusion Hematologic/Lymphatic: Reports: No Symptoms Immunologic: Reports: No Symptoms Exam - Exam Exam: See Below - Vital Signs Vital Signs: Last Vital Signs Temp 36.4 C 07/30/17 18:28 Pulse 133 H 07/30/17 18:28 Resp BP 114/78 07/30/17 18:28 Pulse Ox 99 07/30/17 18:28 Orthostatic Blood Pressure [ 114/80 Standing] Orthostatic Blood Pressure [ 127/88 Sitting] Orthostatic Blood Pressure [ 128/75 Supine] Weight: 90.718 kg - Exam General: Alert, Oriented, Cooperative, Moderate Distress HEENT: Conjunctiva Clear, EACs Clear, EOMI, Hearing Intact, Mucosa Moist & [place] , Nares Patent, Normal Nasal Septum, Posterior Pharynx Clear, Pupils Equal, Pupils Reactive Neck: Supple, Trachea Midline Lungs: Clear to Auscultation, Normal Respiratory Effort Cardiovascular: Regular Rhythm, Tachycardia GI/Abdominal Exam: Normal Bowel Sounds, Soft, Non-Tender, No Organomegaly, No Distention, No Abnormal Bruit, No Mass, Pelvis Stable, Tender, Other (multiple tattoos). No: Distended, Guarding, Rigid, Rebound, Abnormal Bowel Sounds (Male) Exam: Deferred Rectal (Males) Exam: Deferred Back Exam: Normal Inspection, Decreased Range of Motion Extremities: Normal Inspection, Normal Range of Motion, Non-Tender, No Pedal Edema, Normal Capillary Refill Peripheral Pulses: 3+: Posterior Tibial (L), Posterior Tibial (R), Dorsalis Pedis (L), Dorsalis Pedis (R) Skin: Warm, Dry, Intact Neuro Extensive - Mental Status: Oriented x3, Normal Cognition, Memory Intact Neuro Extensive - Motor, Sensory, Reflexes: CN II-XII Intact (limited he is shackles) Psychiatric: Alert, Normal Mood, Anxious. No: Depressed, Agitated, Suicidal Ideation, Homicidal Ideation, Hallucinations, Withdrawal Symptoms - Patient Data Lab Results Last 24 hrs: Laboratory Results - last 24 hr 07/30/17 07/30/17 07/30/17 Range/Units 18:52 18:52 18:52 WBC 12.47 H (4.23-9.07) K/mm3 RBC 3.26 L (4.63-6.08) M/mm3 Hgb 10.3 L (13.7-17.5) gm/L Hct 30.1 L (40.1-51.0) % MCV 92.3 H (79.0-92.2) fl MCH 31.6 (25.7-32.2) pg MCHC 34.2 (32.2-35.5) g/dl RDW Std Deviation 38.8 (35.1-43.9) fL Plt Count 314 (163-337) K/mm3 MPV 9.7 (9.4-12.3) fl Neut % (Auto) 68.8 H (34.0-67.9) % Lymph % (Auto) 21.1 L (21.8-53.1) % [place] % (Auto) 9.1 (5.3-12.2) % Eos % (Auto) 0.6 L (0.8-7.0) Baso % (Auto) 0.2 (0.1-1.2) % Neut # (Auto) 8.59 H (1.78-5.38) K/mm3 Lymph # (Auto) 2.63 (1.32-3.57) K/mm3 [place] # (Auto) 1.13 H (0.30-0.82) K/mm3 Eos # (Auto) 0.07 (0.04-0.54) K/mm3 Baso # (Auto) 0.02 (0.01-0.08) K/mm3 PT 11.9 (8.0-13.0) SECONDS INR 1.09 APTT (22-36) SECONDS D-Dimer, Quantitative 0.37 (0.19-0.59) mg/L Sodium 137 (136-145) mEq/L Potassium 3.6 (3.5-5.1) mEq/L Chloride 105 (98-107) mEq/L Carbon Dioxide 23 (21-32) mEq/L Anion Gap 12.6 (5-15) BUN 28 H (7-18) mg/dL Creatinine 1.4 H (0.7-1.3) mg/dL Est Cr Clr Drug Dosing 70.57 mL/min Estimated GFR (MDRD) > 60 (>60) mL/min BUN/Creatinine Ratio 20.0 H (14-18) Glucose 136 H (74-106) mg/dL Lactic Acid (0.4-2.0) mmol/L Calcium 8.4 L (8.5-10.1) mg/dL Magnesium (1.8-2.4) mg/dl Total Bilirubin 0.3 (0.2-1.0) mg/dL AST 17 (15-37) U/L ALT 40 (16-63) U/L Alkaline Phosphatase 64 (46-116) U/L Troponin I 0.024 (0.00-0.056) ng/mL Total Protein 5.9 L (6.4-8.2) g/dl Albumin 2.8 L (3.4-5.0) g/dl Globulin 3.1 gm/dL Albumin/Globulin Ratio 0.9 L (1-2) Lipase (73-393) U/L Urine Color (Yellow) Urine Appearance (Clear) Urine pH (5.0-8.0) Ur Specific [place] (1.005-1.030) Urine Protein (Negative) Urine Glucose (UA) (Negative) Urine Ketones (Negative) Urine Occult Blood (Negative) Urine Nitrite (Negative) Urine Bilirubin (Negative) Urine Urobilinogen (0.2-1.0) Ur Leukocyte Esterase (Negative) Urine RBC (0-5) /hpf Urine WBC (0-5) /hpf Ur Epithelial Cells (0-5) /hpf Urine Bacteria (FEW) /hpf Urine Mucus (FEW) /hpf Salicylates (2.8-20) mg/dL Urine Opiates Screen (NEGATIVE) Ur Buprenorphine Scrn (NEGATIVE) Ur Oxycodone Screen (NEGATIVE) Urine Methadone Screen (NEGATIVE) Ur Propoxyphene Screen (NEGATIVE) Acetaminophen (10-30) ug/mL Ur Barbiturates Screen (NEGATIVE) Ur Tricyclics Screen (NEGATIVE) Ur Phencyclidine Scrn (NEGATIVE) Ur Amphetamine Screen (NEGATIVE) U Methamphetamines Scrn (NEGATIVE) U Benzodiazepines Scrn (NEGATIVE) U Cocaine Metab Screen (NEGATIVE) U Marijuana (THC) Screen (NEGATIVE) Ethyl Alcohol < 0.03 (0.00) gm% Blood Type Gel Antibody Screen 07/30/17 07/30/17 07/30/17 Range/Units 18:52 18:52 18:52 WBC (4.23-9.07) K/mm3 RBC (4.63-6.08) M/mm3 Hgb (13.7-17.5) gm/L Hct (40.1-51.0) % MCV (79.0-92.2) fl MCH (25.7-32.2) pg MCHC (32.2-35.5) g/dl RDW Std Deviation (35.1-43.9) fL Plt Count (163-337) K/mm3 MPV (9.4-12.3) fl Neut % (Auto) (34.0-67.9) % Lymph % (Auto) (21.8-53.1) % [place] % (Auto) (5.3-12.2) % Eos % (Auto) (0.8-7.0) Baso % (Auto) (0.1-1.2) % Neut # (Auto) (1.78-5.38) K/mm3 Lymph # (Auto) (1.32-3.57) K/mm3 [place] # (Auto) (0.30-0.82) K/mm3 Eos # (Auto) (0.04-0.54) K/mm3 Baso # (Auto) (0.01-0.08) K/mm3 PT (8.0-13.0) SECONDS INR APTT 23 (22-36) SECONDS D-Dimer, Quantitative (0.19-0.59) mg/L Sodium (136-145) mEq/L Potassium (3.5-5.1) mEq/L Chloride (98-107) mEq/L Carbon Dioxide (21-32) mEq/L Anion Gap (5-15) BUN (7-18) mg/dL Creatinine (0.7-1.3) mg/dL Est Cr Clr Drug Dosing mL/min Estimated GFR (MDRD) (>60) mL/min BUN/Creatinine Ratio (14-18) Glucose (74-106) mg/dL Lactic Acid 2.9 H (0.4-2.0) mmol/L Calcium (8.5-10.1) mg/dL Magnesium (1.8-2.4) mg/dl Total Bilirubin (0.2-1.0) mg/dL AST (15-37) U/L ALT (16-63) U/L Alkaline Phosphatase (46-116) U/L Troponin I (0.00-0.056) ng/mL Total Protein (6.4-8.2) g/dl Albumin (3.4-5.0) g/dl Globulin gm/dL Albumin/Globulin Ratio (1-2) Lipase (73-393) U/L Urine Color (Yellow) Urine Appearance (Clear) Urine pH (5.0-8.0) Ur Specific [place] (1.005-1.030) Urine Protein (Negative) Urine Glucose (UA) (Negative) Urine Ketones (Negative) Urine Occult Blood (Negative) Urine Nitrite (Negative) Urine Bilirubin (Negative) Urine Urobilinogen (0.2-1.0) Ur Leukocyte Esterase (Negative) Urine RBC (0-5) /hpf Urine WBC (0-5) /hpf Ur Epithelial Cells (0-5) /hpf Urine Bacteria (FEW) /hpf Urine Mucus (FEW) /hpf Salicylates (2.8-20) mg/dL Urine Opiates Screen (NEGATIVE) Ur Buprenorphine Scrn (NEGATIVE) Ur Oxycodone Screen (NEGATIVE) Urine Methadone Screen (NEGATIVE) Ur Propoxyphene Screen (NEGATIVE) Acetaminophen (10-30) ug/mL Ur Barbiturates Screen (NEGATIVE) Ur Tricyclics Screen (NEGATIVE) Ur Phencyclidine Scrn (NEGATIVE) Ur Amphetamine Screen (NEGATIVE) U Methamphetamines Scrn (NEGATIVE) U Benzodiazepines Scrn (NEGATIVE) U Cocaine Metab Screen (NEGATIVE) U Marijuana (THC) Screen (NEGATIVE) Ethyl Alcohol (0.00) gm% Blood Type A POSITIVE Gel Antibody Screen Negative 07/30/17 07/30/17 07/30/17 Range/Units 18:52 18:52 21:00 WBC (4.23-9.07) K/mm3 RBC (4.63-6.08) M/mm3 Hgb (13.7-17.5) gm/L Hct (40.1-51.0) % MCV (79.0-92.2) fl MCH (25.7-32.2) pg MCHC (32.2-35.5) g/dl RDW Std Deviation (35.1-43.9) fL Plt Count (163-337) K/mm3 MPV (9.4-12.3) fl Neut % (Auto) (34.0-67.9) % Lymph % (Auto) (21.8-53.1) % [place] % (Auto) (5.3-12.2) % Eos % (Auto) (0.8-7.0) Baso % (Auto) (0.1-1.2) % Neut # (Auto) (1.78-5.38) K/mm3 Lymph # (Auto) (1.32-3.57) K/mm3 [place] # (Auto) (0.30-0.82) K/mm3 Eos # (Auto) (0.04-0.54) K/mm3 Baso # (Auto) (0.01-0.08) K/mm3 PT (8.0-13.0) SECONDS INR APTT (22-36) SECONDS D-Dimer, Quantitative (0.19-0.59) mg/L Sodium (136-145) mEq/L Potassium (3.5-5.1) mEq/L Chloride (98-107) mEq/L Carbon Dioxide (21-32) mEq/L Anion Gap (5-15) BUN (7-18) mg/dL Creatinine (0.7-1.3) mg/dL Est Cr Clr Drug Dosing mL/min Estimated GFR (MDRD) (>60) mL/min BUN/Creatinine Ratio (14-18) Glucose (74-106) mg/dL Lactic Acid (0.4-2.0) mmol/L Calcium (8.5-10.1) mg/dL Magnesium 1.7 L (1.8-2.4) mg/dl Total Bilirubin (0.2-1.0) mg/dL AST (15-37) U/L ALT (16-63) U/L Alkaline Phosphatase (46-116) U/L Troponin I (0.00-0.056) ng/mL Total Protein (6.4-8.2) g/dl Albumin (3.4-5.0) g/dl Globulin gm/dL Albumin/Globulin Ratio (1-2) Lipase 73 (73-393) U/L Urine Color Yellow (Yellow) Urine Appearance Clear (Clear) Urine pH 6.0 (5.0-8.0) Ur Specific [place] 1.025 (1.005-1.030) Urine Protein Trace H (Negative) Urine Glucose (UA) Negative (Negative) Urine Ketones Negative (Negative) Urine Occult Blood Negative (Negative) Urine Nitrite Negative (Negative) Urine Bilirubin Negative (Negative) Urine Urobilinogen 0.2 (0.2-1.0) Ur Leukocyte Esterase Negative (Negative) Urine RBC 0-5 (0-5) /hpf Urine WBC 0-5 (0-5) /hpf Ur Epithelial Cells 0-5 (0-5) /hpf Urine Bacteria Few (FEW) /hpf Urine Mucus Few (FEW) /hpf Salicylates 0.8 L (2.8-20) mg/dL Urine Opiates Screen (NEGATIVE) Ur Buprenorphine Scrn (NEGATIVE) Ur Oxycodone Screen (NEGATIVE) Urine Methadone Screen (NEGATIVE) Ur Propoxyphene Screen (NEGATIVE) Acetaminophen 3 L (10-30) ug/mL Ur Barbiturates Screen (NEGATIVE) Ur Tricyclics Screen (NEGATIVE) Ur Phencyclidine Scrn (NEGATIVE) Ur Amphetamine Screen (NEGATIVE) U Methamphetamines Scrn (NEGATIVE) U Benzodiazepines Scrn (NEGATIVE) U Cocaine Metab Screen (NEGATIVE) U Marijuana (THC) Screen (NEGATIVE) Ethyl Alcohol (0.00) gm% Blood Type Gel Antibody Screen 07/30/17 Range/Units 21:00 WBC (4.23-9.07) K/mm3 RBC (4.63-6.08) M/mm3 Hgb (13.7-17.5) gm/L Hct (40.1-51.0) % MCV (79.0-92.2) fl MCH (25.7-32.2) pg MCHC (32.2-35.5) g/dl RDW Std Deviation (35.1-43.9) fL Plt Count (163-337) K/mm3 MPV (9.4-12.3) fl Neut % (Auto) (34.0-67.9) % Lymph % (Auto) (21.8-53.1) % [place] % (Auto) (5.3-12.2) % Eos % (Auto) (0.8-7.0) Baso % (Auto) (0.1-1.2) % Neut # (Auto) (1.78-5.38) K/mm3 Lymph # (Auto) (1.32-3.57) K/mm3 [place] # (Auto) (0.30-0.82) K/mm3 Eos # (Auto) (0.04-0.54) K/mm3 Baso # (Auto) (0.01-0.08) K/mm3 PT (8.0-13.0) SECONDS INR APTT (22-36) SECONDS D-Dimer, Quantitative (0.19-0.59) mg/L Sodium (136-145) mEq/L Potassium (3.5-5.1) mEq/L Chloride (98-107) mEq/L Carbon Dioxide (21-32) mEq/L Anion Gap (5-15) BUN (7-18) mg/dL Creatinine (0.7-1.3) mg/dL Est Cr Clr Drug Dosing mL/min Estimated GFR (MDRD) (>60) mL/min BUN/Creatinine Ratio (14-18) Glucose (74-106) mg/dL Lactic Acid (0.4-2.0) mmol/L Calcium (8.5-10.1) mg/dL Magnesium (1.8-2.4) mg/dl Total Bilirubin (0.2-1.0) mg/dL AST (15-37) U/L ALT (16-63) U/L Alkaline Phosphatase (46-116) U/L Troponin I (0.00-0.056) ng/mL Total Protein (6.4-8.2) g/dl Albumin (3.4-5.0) g/dl Globulin gm/dL Albumin/Globulin Ratio (1-2) Lipase (73-393) U/L Urine Color (Yellow) Urine Appearance (Clear) Urine pH (5.0-8.0) Ur Specific [place] (1.005-1.030) Urine Protein (Negative) Urine Glucose (UA) (Negative) Urine Ketones (Negative) Urine Occult Blood (Negative) Urine Nitrite (Negative) Urine Bilirubin (Negative) Urine Urobilinogen (0.2-1.0) Ur Leukocyte Esterase (Negative) Urine RBC (0-5) /hpf Urine WBC (0-5) /hpf Ur Epithelial Cells (0-5) /hpf Urine Bacteria (FEW) /hpf Urine Mucus (FEW) /hpf Salicylates (2.8-20) mg/dL Urine Opiates Screen Negative (NEGATIVE) Ur Buprenorphine Scrn Negative (NEGATIVE) Ur Oxycodone Screen Negative (NEGATIVE) Urine Methadone Screen Negative (NEGATIVE) Ur Propoxyphene Screen Negative (NEGATIVE) Acetaminophen (10-30) ug/mL Ur Barbiturates Screen Negative (NEGATIVE) Ur Tricyclics Screen Negative (NEGATIVE) Ur Phencyclidine Scrn Negative (NEGATIVE) Ur Amphetamine Screen Negative (NEGATIVE) U Methamphetamines Scrn Negative (NEGATIVE) U Benzodiazepines Scrn Negative (NEGATIVE) U Cocaine Metab Screen Negative (NEGATIVE) U Marijuana (THC) Screen Presumptive positive H (NEGATIVE) Ethyl Alcohol (0.00) gm% Blood Type Gel Antibody Screen Result Diagrams: 07/31/17 18:03 07/31/17 06:18 *Q Meaningful Use (ADM) - VTE *Q VTE Criteria *Q: - Stroke *Q Stroke Criteria *Q: - AMI *Q AMI Criteria *Q: Problem List Initiated/Reviewed/Updated: Yes Orders Last 24hrs: Active Orders 24 hr Category Date Time Status EKG 12 Lead [EKG Documentation Completion] [RC] STAT Care 07/30/17 18:35 Active Orthostatic Vital Signs [RC] STAT Care 07/30/17 19:13 Active Peripheral IV Care [RC] . DIRECTED Care 07/30/17 18:36 Active Abdomen Series w Chest 1V [CR] Stat Exams 07/30/17 18:37 Taken C DIFFICILE BY PCR W/NAP1 [MOLEC] Stat Lab 07/30/17 20:52 Received CULTURE BLOOD [BC] Stat Lab 07/30/17 18:36 Ordered CULTURE BLOOD [BC] Stat Lab 07/30/17 18:52 Received CULTURE STOOL + SHIGATOX [RM] Stat Lab 07/30/17 20:52 Received PATIENT RETYPE [BBK] Stat Lab 07/30/17 18:52 Results TYPE AND SCREEN [BBK] Stat Lab 07/30/17 18:52 Results Lactated Ringers [Ringers, Lactated] 1,000 ml Med 07/30/17 20:45 Active IV ASDIRECTED Pantoprazole [ProTONIX IV] 80 mg Med 07/30/17 21:15 Active Sodium Chloride 0.9% [Normal Saline] 100 ml IV Q10H Sodium Chloride 0.9% [Saline Flush] Med 07/30/17 18:35 Active 10 ml FLUSH ASDIRECTED PRN Blood Culture x2 Reflex Set [OM.PC] Stat Oth 07/30/17 18:35 Ordered NG [Nasogastric Orogastric Tube Insertion] [OM.PC] Oth 07/30/17 21:06 Ordered Routine Peripheral IV Insertion Adult [OM.PC] Routine Oth 07/30/17 18:35 Ordered Medication Orders Lactated Ringer's (Ringers, Lactated) 1,000 mls @ 250 mls/hr IV ASDIRECTED FLAKO Last Admin: 07/30/17 21:45 Dose: 250 mls/hr Pantoprazole Sodium 80 mg/ (Sodium Chloride) 100 mls @ 10 mls/hr IV Q10H FLAKO PRN Reason: 8 MG/HR Last Admin: 07/30/17 21:52 Dose: 8 mg/hr, 10 mls/hr Sodium Chloride (Saline Flush) 10 ml FLUSH ASDIRECTED PRN PRN Reason: Keep Vein Open Last Admin: 07/30/17 18:49 Dose: 10 ml Assessment/Plan Comment:: Assessment/Plan: Acute: Symptomatic Hypotension - Likely from GI Loss - Documented BP of 80s/50s mmHg - Currently Receiving Aggressive Volume Resuscitation - Monitor for hemodynamic instability Coffee-Ground Gastric Contents - Melenic/Bloody Stools - Heme-occult test pending - Risk Factors: ASA and +/- ETOH (ARSLAN is <0.03) - No NSAIDs or ETOH use; No hx/o PUD or GERD - Current Hgb is 10.3 - IV Protonix drip and IV fluids - GS consult Abdominal Pain - Likely 2/2 above - Cannot r/o PUD - Treatment supportive care and as noted above Pre-Renal Azotemia - BUN 28 and Cr 1.4 - 2/2 GI Bleed - Currently Hydrating with LR at 250 cc/hr - Monitor output Lactic Acidosis - 2/2 Localized hypo-perfusion - Currently hydrating - Repeat LA at 2100 Hypomagnesemia - Mg 1.7 - Likely from inadequate intake and GI Loss - Will replete 2 gram of Mag-sulfate x1 now Substance Abuse - UDS pos for THC S/p Presyncopal Episode - 2/2 Volume Loss Plan: Admit to the unit Routine AM Labs Monitor H/H GS consult SW/CM for d/c planning Additional orders as above Code status: 1
[2017-07-30] MEDS ORDERED: Acetaminophen 325 MG Tab PO PRN (22:13)
[2017-07-30] MEDS ORDERED: Acetaminophen/HYDROcodone 325-5 MG Tab PO PRN (22:13)
[2017-07-30] MEDS ORDERED: Ondansetron 4 MG/2 ML SDV IV PRN (22:13)
[2017-07-30] MEDS ORDERED: Albuterol/Ipratropium 3.0-0.5 MG/3 ML Neb Soln NEB PRN (22:13)
[2017-07-30] MEDS ORDERED: Temazepam 15 MG Cap PO PRN (22:13)
[2017-07-30] MEDS ORDERED: Promethazine 12.5 MG in Sodium Chloride 0.9% 50 ML IV PRN (22:13)
[2017-07-30] MEDS ORDERED: LORazepam 2 MG/ML MDV IVPUSH PRN (22:18)
[2017-07-30] MEDS ORDERED: hydrALAZINE 20 MG/ML SDV IVPUSH PRN (22:18)
[2017-07-30] MEDS ORDERED: Magnesium Sulfate/Water 2 GM in Premix Bag 1 BAG IV ONE (22:22)
[2017-07-30] MEDS: LORazepam 2 MG/ML MDV IV PRN (23:26)
[2017-07-30] MEDS: Metoprolol Tartrate 5 MG/5 ML SDV IVPUSH PRN (23:54)
[2017-07-31] MEDS: Dextrose 5%-0.45% NaCl 1,000 ML IV SCH ×2 (02:31→10:30)
[2017-07-31] MEDS: LORazepam 2 MG/ML MDV IV PRN (06:16)
[2017-07-31] MEDS: Metoprolol Tartrate 5 MG/5 ML SDV IVPUSH PRN ×2 (06:46→19:59)
--- NOTE | 2017-07-31 08:33 | CR ---
Abdominal series: Supine and upright views of the abdomen were obtained as well as frontal view of the chest. Comparison: No previous study. Heart size and mediastinum are normal. Small nodule is noted within the left upper chest measuring approximately 7 mm. This is not definitely calcified. Second nodule is noted within the right lung base measuring approximately 3 mm. Lungs otherwise are clear. Bony structures are unremarkable. Bowel gas pattern is normal. No abnormal calcifications or soft tissue abnormality is seen. No free air is seen. Impression: 1. Small nodule within each side of the chest. Since these are multiple they are most likely due to granulomas. 2. Abdominal series is otherwise unremarkable. Diagnostic code #3
[2017-07-31] MEDS: Pantoprazole 40 MG Vial IV SCH (09:53)
--- NOTE | 2017-07-31 10:19 | PCM.PREANE ---
Preanesthetic Assessment - Anesthesia/Transfusion/Family Hx Anesthesia History: No Prior Anesthesia Family History of Anesthesia Reaction: No Transfusion History: No Prior Transfusion(s) - Review of Systems General: Malaise Pulmonary: No Symptoms Cardiovascular: No Symptoms Gastrointestinal: Abdominal Pain, Nausea, Vomiting Neurological: No Symptoms Other: Reports: Easy Bleeding - Physical Assessment NPO Status Date: 07/30/17 NPO Status Time: 00:00 Pulse: 120 O2 Sat by Pulse Oximetry: 98 Respiratory Rate: 17 Blood Pressure: 106/66 Temperature: 36.6 C Vital Signs: Last Vital Signs Temp 36.6 C 07/31/17 08:00 Pulse 120 H 07/31/17 06:46 Resp 17 07/31/17 08:00 BP 107/71 07/31/17 08:00 Pulse Ox 98 07/31/17 08:00 Height: 1.73 m Weight: 90.718 kg ASA Class: 2 Mental Status: Alert & Oriented x3 Airway Class: Mallampati = 1 Dentition: Reports: Normal Dentition Thyro-Mental Finger Breadths: 3 Mouth Opening Finger Breadths: 3 ROM/Head Extension: Full Lungs: Clear to Auscultation, Normal Respiratory Effort Cardiovascular: Regular Rate, Regular Rhythm - Lab Values: Laboratory Last Values WBC 8.40 K/mm3 (4.23-9.07) 07/31/17 06:10 RBC 2.72 M/mm3 (4.63-6.08) L 07/31/17 06:10 Hgb 8.5 gm/L (13.7-17.5) L 07/31/17 06:10 Hct 25.4 % (40.1-51.0) L 07/31/17 06:10 MCV 93.4 fl (79.0-92.2) H 07/31/17 06:10 MCH 31.3 pg (25.7-32.2) 07/31/17 06:10 MCHC 33.5 g/dl (32.2-35.5) 07/31/17 06:10 RDW Std Deviation 39.0 fL (35.1-43.9) 07/31/17 06:10 Plt Count 269 K/mm3 (163-337) 07/31/17 06:10 MPV 9.7 fl (9.4-12.3) 07/31/17 06:10 Neut % (Auto) 57.8 % (34.0-67.9) 07/31/17 06:10 Lymph % (Auto) 29.8 % (21.8-53.1) 07/31/17 06:10 [place] % (Auto) 10.6 % (5.3-12.2) 07/31/17 06:10 Eos % (Auto) 1.3 (0.8-7.0) 07/31/17 06:10 Baso % (Auto) 0.1 % (0.1-1.2) 07/31/17 06:10 Neut # (Auto) 4.86 K/mm3 (1.78-5.38) 07/31/17 06:10 Lymph # (Auto) 2.50 K/mm3 (1.32-3.57) 07/31/17 06:10 [place] # (Auto) 0.89 K/mm3 (0.30-0.82) H 07/31/17 06:10 Eos # (Auto) 0.11 K/mm3 (0.04-0.54) 07/31/17 06:10 Baso # (Auto) 0.01 K/mm3 (0.01-0.08) 07/31/17 06:10 PT 11.9 SECONDS (8.0-13.0) 07/30/17 18:52 INR 1.09 07/30/17 18:52 APTT 23 SECONDS (22-36) 07/30/17 18:52 D-Dimer, Quantitative 0.37 mg/L (0.19-0.59) 07/30/17 18:52 Sodium 136 mEq/L (136-145) 07/31/17 06:18 Potassium 4.1 mEq/L (3.5-5.1) 07/31/17 06:18 Chloride 105 mEq/L (98-107) 07/31/17 06:18 Carbon Dioxide 22 mEq/L (21-32) 07/31/17 06:18 Anion Gap 13.1 (5-15) 07/31/17 06:18 BUN 22 mg/dL (7-18) H 07/31/17 06:18 Creatinine 1.0 mg/dL (0.7-1.3) 07/31/17 06:18 Est Cr Clr Drug Dosing 98.80 mL/min 07/31/17 06:18 Estimated GFR (MDRD) > 60 mL/min (>60) 07/31/17 06:18 BUN/Creatinine Ratio 22.0 (14-18) H 07/31/17 06:18 Glucose 124 mg/dL (74-106) H 07/31/17 06:18 Lactic Acid 1.2 mmol/L (0.4-2.0) 07/30/17 23:05 Calcium 7.9 mg/dL (8.5-10.1) L 07/31/17 06:18 Magnesium 2.0 mg/dl (1.8-2.4) 07/31/17 06:18 Total Bilirubin 0.2 mg/dL (0.2-1.0) 07/31/17 06:18 AST 15 U/L (15-37) 07/31/17 06:18 ALT 32 U/L (16-63) 07/31/17 06:18 Alkaline Phosphatase 52 U/L (46-116) 07/31/17 06:18 Troponin I 0.024 ng/mL (0.00-0.056) 07/30/17 18:52 Total Protein 5.4 g/dl (6.4-8.2) L 07/31/17 06:18 Albumin 2.7 g/dl (3.4-5.0) L 07/31/17 06:18 Globulin 2.7 gm/dL 07/31/17 06:18 Albumin/Globulin Ratio 1.0 (1-2) 07/31/17 06:18 Lipase 73 U/L (73-393) 07/30/17 18:52 Urine Color Yellow (Yellow) 07/30/17 21:00 Urine Appearance Clear (Clear) 07/30/17 21:00 Urine pH 6.0 (5.0-8.0) 07/30/17 21:00 Ur Specific [place] 1.025 (1.005-1.030) 07/30/17 21:00 Urine Protein Trace (Negative) H 07/30/17 21:00 Urine Glucose (UA) Negative (Negative) 07/30/17 21:00 Urine Ketones Negative (Negative) 07/30/17 21:00 Urine Occult Blood Negative (Negative) 07/30/17 21:00 Urine Nitrite Negative (Negative) 07/30/17 21:00 Urine Bilirubin Negative (Negative) 07/30/17 21:00 Urine Urobilinogen 0.2 (0.2-1.0) 07/30/17 21:00 Ur Leukocyte Esterase Negative (Negative) 07/30/17 21:00 Urine RBC 0-5 /hpf (0-5) 07/30/17 21:00 Urine WBC 0-5 /hpf (0-5) 07/30/17 21:00 Ur Epithelial Cells 0-5 /hpf (0-5) 07/30/17 21:00 Urine Bacteria Few /hpf (FEW) 07/30/17 21:00 Urine Mucus Few /hpf (FEW) 07/30/17 21:00 Salicylates 0.8 mg/dL (2.8-20) L 07/30/17 18:52 Urine Opiates Screen Negative (NEGATIVE) 07/30/17 21:00 Ur Buprenorphine Scrn Negative (NEGATIVE) 07/30/17 21:00 Ur Oxycodone Screen Negative (NEGATIVE) 07/30/17 21:00 Urine Methadone Screen Negative (NEGATIVE) 07/30/17 21:00 Ur Propoxyphene Screen Negative (NEGATIVE) 07/30/17 21:00 Acetaminophen 3 ug/mL (10-30) L 07/30/17 18:52 Ur Barbiturates Screen Negative (NEGATIVE) 07/30/17 21:00 Ur Tricyclics Screen Negative (NEGATIVE) 07/30/17 21:00 Ur Phencyclidine Scrn Negative (NEGATIVE) 07/30/17 21:00 Ur Amphetamine Screen Negative (NEGATIVE) 07/30/17 21:00 U Methamphetamines Scrn Negative (NEGATIVE) 07/30/17 21:00 U Benzodiazepines Scrn Negative (NEGATIVE) 07/30/17 21:00 U Cocaine Metab Screen Negative (NEGATIVE) 07/30/17 21:00 U Marijuana (THC) Screen Presumptive positive (NEGATIVE) H 07/30/17 21:00 Ethyl Alcohol < 0.03 gm% (0.00) 07/30/17 18:52 C.difficile [id number] Presumptive negative 07/30/17 20:52 C. difficile Tox (PCR) Negative 07/30/17 20:52 Blood Type A POSITIVE 07/30/17 18:52 Gel Antibody Screen Negative 07/30/17 18:52 - Allergies Allergies/Adverse Reactions: Allergies Allergy/AdvReac Type Severity Reaction Status Date / Time No Known Allergies Allergy Verified 07/30/17 19:25 - Anesthesia Plan Pre-Op Medication Ordered: None - Acknowledgements Anesthesia Type Planned: MAC Pt an Appropriate Candidate for the Planned Anesthesia: Yes Alternatives and Risks of Anesthesia Discussed w Pt/Guardian: Yes Pt/Guardian Understands and Agrees with Anesthesia Plan: Yes PreAnesthesia Questionnaire Respiratory History: Reports: Asthma - SUBSTANCE USE Smoking Status *Q: Unknown Ever Smoked Tobacco Use Within Last Twelve Months: Other (See Below) Days Per Week of Alcohol Use: 0 Number of Drinks Per Day: 0 Total Drinks Per Week: 0 Recreational Drug Use History: No Recreational Drug Type: Reports: Marijuana/Hashish - HOME MEDS Home Medications: Home Meds . [No Known Home Meds] 07/30/17 [History] - CURRENT (IN HOUSE) MEDS Current Meds: Current Medications Acetaminophen (Tylenol) 650 mg PO Q4H PRN PRN Reason: Pain (Mild 1-3)/fever Hydrocodone Bitart/Acetaminophen ([place] 325-5 Mg) 1 tab PO Q4H PRN PRN Reason: Pain (moderate 4-6) Albuterol/Ipratropium (Duoneb 3.0-0.5 Mg/3 Ml) 3 ml NEB Q4H PRN PRN Reason: Shortness Of Breath/wheezing Hydralazine HCl (Apresoline) 20 mg IVPUSH Q4H PRN PRN Reason: Hypertension Hydromorphone HCl (Dilaudid) 1 mg IVPUSH Q3H PRN PRN Reason: Pain (severe 7-10) Dextrose/Sodium Chloride (Dextrose 5%-1/2 Ns) 1,000 mls @ 125 mls/hr IV ASDIRECTED FLAKO Last Admin: 07/31/17 02:31 Dose: 125 mls/hr Promethazine HCl 12.5 mg/ (Sodium Chloride) 50.5 mls @ 100 mls/hr IV Q6H PRN PRN Reason: Nausea/Vomiting Lorazepam (Ativan) 1 mg IV Q6H PRN PRN Reason: Anxiety Last Admin: 07/31/17 06:16 Dose: 1 mg Lorazepam (Ativan) 2 mg IVPUSH Q4H PRN PRN Reason: Seizures Magnesium Sulfate (Pharmacy To Dose - Magnesium Replacement) 1 dose .XX ASDIRECTED [facility] Metoprolol Tartrate (Lopressor) 5 mg IVPUSH Q4H PRN PRN Reason: Tachycardia Last Admin: 07/31/17 06:46 Dose: 5 mg Ondansetron HCl (Zofran) 4 mg IV Q6H PRN PRN Reason: Nausea/Vomiting Pantoprazole Sodium (Protonix Iv) 40 mg IV Q12HR FLAKO Last Admin: 07/31/17 09:53 Dose: 40 mg Potassium Chloride (Pharmacy To Dose - Potassium Replacement) 1 dose .XX ASDIRECTED [facility] Sodium Chloride (Saline Flush) 10 ml FLUSH ASDIRECTED PRN PRN Reason: Keep Vein Open Last Admin: 07/30/17 18:49 Dose: 10 ml Temazepam (Restoril) 15 mg PO BEDTIME PRN PRN Reason: Sleep Discontinued Medications Sodium Chloride (Normal Saline) 2,000 mls @ 2,000 mls/hr IV ONETIME ONE Stop: 07/30/17 19:35 Last Admin: 07/30/17 18:48 Dose: 2,000 mls/hr Lactated Ringer's (Ringers, Lactated) 1,000 mls @ 250 mls/hr IV ASDIRECTED [facility]LAKO Stop: 07/31/17 00:45 Last Admin: 07/30/17 21:45 Dose: 250 mls/hr Pantoprazole Sodium 80 mg/ (Sodium Chloride) 100 mls @ 10 mls/hr IV Q10H FLAKO PRN Reason: 8 MG/HR Last Admin: 07/30/17 21:52 Dose: 8 mg/hr, 10 mls/hr Magnesium Sulfate 2 gm/ Premix 50 mls @ 25 mls/hr IV ONETIME ONE Stop: 07/31/17 00:21 Last Admin: 07/30/17 23:24 Dose: 25 mls/hr Pantoprazole Sodium (Protonix Iv) 80 mg IVPUSH .BOLUS ONE Stop: 07/30/17 19:16 Last Admin: 07/30/17 19:23 Dose: 80 mg
[2017-07-31] MEDS: HYDROmorphone 1 MG/ML Syringe IVPUSH PRN ×2 (11:12→18:22)
[2017-07-31] MEDS ORDERED: Lidocaine 1% 4 ML ONE (11:43)
[2017-07-31] MEDS ORDERED: Propofol 200 MG/20 ML SDV ONE (11:44)
[2017-07-31] MEDS ORDERED: fentaNYL 100 MCG/2 ML SDV ONE (11:45)
[2017-07-31] MEDS ORDERED: Ketamine 500 mg/10 ML MDV ONE (11:47)
--- NOTE | 2017-07-31 12:06 | PCM.OPNOTE ---
- General Post-Op/Procedure Note Date of Surgery/Procedure: 07/31/17 Operative Procedure(s): egd with bx Findings: normal study Pre Op Diagnosis: gi bleeding Post-Op Diagnosis: Same Anesthesia Technique: MAC Primary Surgeon: Star Torres EBL in mLs: 0 Complications: None Condition: Good Free Text/Narrative:: Intake & Output 07/30/17 07/31/17 07/31/17 23:59 07:59 15:59 Intake Total 1200 Balance 1200
--- NOTE | 2017-07-31 12:20 | PCM48HPAN ---
Post Anesthesia Note - EVALUATION WITHIN 48HRS OF ANESTHETIC Vital Signs in Normal Range: Yes Patient Participated in Evaluation: Yes Respiratory Function Stable: Yes Airway Patent: Yes Cardiovascular Function Stable: Yes Hydration Status Stable: Yes Pain Control Satisfactory: Yes Nausea and Vomiting Control Satisfactory: Yes Mental Status Recovered: Yes
--- NOTE | 2017-07-31 13:19 | PCM.PN ---
- General Info Date of Service: 07/31/17 Admission Dx/Problem (Free Text): Melena Subjective Update: Follow Up Functional Status: Reports: Pain Controlled, Urinating. Denies: New Symptoms - Review of Systems General: Denies: Fever, Weakness, Fatigue, Malaise, Chills HEENT: Reports: No Symptoms Pulmonary: Denies: Shortness of Breath Cardiovascular: Denies: Chest Pain, Palpitations, Dyspnea on Exertion Gastrointestinal: Reports: Flatus. Denies: Abdominal Pain, Diarrhea, Hematochezia, Melena, Nausea, Vomiting Genitourinary: Reports: No Symptoms Musculoskeletal: Reports: No Symptoms Skin: Denies: Cyanosis, Jaundice, Mottled, Diaphoresis Neurological: Denies: Confusion, Dizziness, Difficulty Walking, Weakness, Gait Disturbance Psychiatric: Denies: Depression, Mood Lability, Anxiety, Agitation, Cravings, Hallucinations, Suicidal Ideation Systems Review Comment:: No significant overnight or acute issues. He is scheduled for endoscopy this am. His Hgb is 8.5 this am. No episode of rectal bleed or hematesis reported. He slept pretty good last night. - Patient Data Vitals - Most Recent: Last Vital Signs Temp 36.7 C 07/31/17 13:18 Pulse 120 H 07/31/17 10:21 Resp 15 07/31/17 13:18 BP 102/73 07/31/17 13:18 Pulse Ox 97 07/31/17 13:18 Weight - Most Recent: 90.718 kg I&O - Last 24 Hours: Intake & Output 07/30/17 07/31/17 07/31/17 22:59 06:59 14:59 Intake Total 1200 Balance 1200 Lab Results Last 24 Hours: Laboratory Results - last 24 hr 07/30/17 07/30/17 07/31/17 Range/Units 23:05 23:05 06:10 WBC 8.40 (4.23-9.07) K/mm3 RBC 2.72 L (4.63-6.08) M/mm3 Hgb 9.0 L 8.5 L (13.7-17.5) gm/L Hct 26.8 L 25.4 L (40.1-51.0) % MCV 93.4 H (79.0-92.2) fl MCH 31.3 (25.7-32.2) pg MCHC 33.5 (32.2-35.5) g/dl RDW Std Deviation 39.0 (35.1-43.9) fL Plt Count 269 (163-337) K/mm3 MPV 9.7 (9.4-12.3) fl Neut % (Auto) 57.8 (34.0-67.9) % Lymph % (Auto) 29.8 (21.8-53.1) % [place] % (Auto) 10.6 (5.3-12.2) % Eos % (Auto) 1.3 (0.8-7.0) Baso % (Auto) 0.1 (0.1-1.2) % Neut # (Auto) 4.86 (1.78-5.38) K/mm3 Lymph # (Auto) 2.50 (1.32-3.57) K/mm3 [place] # (Auto) 0.89 H (0.30-0.82) K/mm3 Eos # (Auto) 0.11 (0.04-0.54) K/mm3 Baso # (Auto) 0.01 (0.01-0.08) K/mm3 Sodium (136-145) mEq/L Potassium (3.5-5.1) mEq/L Chloride (98-107) mEq/L Carbon Dioxide (21-32) mEq/L Anion Gap (5-15) BUN (7-18) mg/dL Creatinine (0.7-1.3) mg/dL Est Cr Clr Drug Dosing mL/min Estimated GFR (MDRD) (>60) mL/min BUN/Creatinine Ratio (14-18) Glucose (74-106) mg/dL Lactic Acid 1.2 (0.4-2.0) mmol/L Calcium (8.5-10.1) mg/dL Magnesium (1.8-2.4) mg/dl Total Bilirubin (0.2-1.0) mg/dL AST (15-37) U/L ALT (16-63) U/L Alkaline Phosphatase (46-116) U/L Total Protein (6.4-8.2) g/dl Albumin (3.4-5.0) g/dl Globulin gm/dL Albumin/Globulin Ratio (1-2) 07/31/17 07/31/17 Range/Units 06:18 12:15 WBC (4.23-9.07) K/mm3 RBC (4.63-6.08) M/mm3 Hgb 7.7 L (13.7-17.5) gm/L Hct 23.6 L (40.1-51.0) % MCV (79.0-92.2) fl MCH (25.7-32.2) pg MCHC (32.2-35.5) g/dl RDW Std Deviation (35.1-43.9) fL Plt Count (163-337) K/mm3 MPV (9.4-12.3) fl Neut % (Auto) (34.0-67.9) % Lymph % (Auto) (21.8-53.1) % [place] % (Auto) (5.3-12.2) % Eos % (Auto) (0.8-7.0) Baso % (Auto) (0.1-1.2) % Neut # (Auto) (1.78-5.38) K/mm3 Lymph # (Auto) (1.32-3.57) K/mm3 [place] # (Auto) (0.30-0.82) K/mm3 Eos # (Auto) (0.04-0.54) K/mm3 Baso # (Auto) (0.01-0.08) K/mm3 Sodium 136 (136-145) mEq/L Potassium 4.1 (3.5-5.1) mEq/L Chloride 105 (98-107) mEq/L Carbon Dioxide 22 (21-32) mEq/L Anion Gap 13.1 (5-15) BUN 22 H (7-18) mg/dL Creatinine 1.0 (0.7-1.3) mg/dL Est Cr Clr Drug Dosing 98.80 mL/min Estimated GFR (MDRD) > 60 (>60) mL/min BUN/Creatinine Ratio 22.0 H (14-18) Glucose 124 H (74-106) mg/dL Lactic Acid (0.4-2.0) mmol/L Calcium 7.9 L (8.5-10.1) mg/dL Magnesium 2.0 (1.8-2.4) mg/dl Total Bilirubin 0.2 (0.2-1.0) mg/dL AST 15 (15-37) U/L ALT 32 (16-63) U/L Alkaline Phosphatase 52 (46-116) U/L Total Protein 5.4 L (6.4-8.2) g/dl Albumin 2.7 L (3.4-5.0) g/dl Globulin 2.7 gm/dL Albumin/Globulin Ratio 1.0 (1-2) [place] Results Last 24 Hours: Microbiology 07/30/17 23:05 Anaerobic Blood Culture - Final Blood - Venous - Lab Draw Med Orders - Current: Current Medications Acetaminophen (Tylenol) 650 mg PO Q4H PRN PRN Reason: Pain (Mild 1-3)/fever Hydrocodone Bitart/Acetaminophen ([place] 325-5 Mg) 1 tab PO Q4H PRN PRN Reason: Pain (moderate 4-6) Albuterol/Ipratropium (Duoneb 3.0-0.5 Mg/3 Ml) 3 ml NEB Q4H PRN PRN Reason: Shortness Of Breath/wheezing Hydralazine HCl (Apresoline) 20 mg IVPUSH Q4H PRN PRN Reason: Hypertension Hydromorphone HCl (Dilaudid) 1 mg IVPUSH Q3H PRN PRN Reason: Pain (severe 7-10) Last Admin: 07/31/17 11:12 Dose: 0.5 mg Dextrose/Sodium Chloride (Dextrose 5%-1/2 Ns) 1,000 mls @ 125 mls/hr IV ASDIRECTED [facility] Last Admin: 07/31/17 10:30 Dose: 125 mls/hr Promethazine HCl 12.5 mg/ (Sodium Chloride) 50.5 mls @ 100 mls/hr IV Q6H PRN PRN Reason: Nausea/Vomiting Lorazepam (Ativan) 1 mg IV Q6H PRN PRN Reason: Anxiety Last Admin: 07/31/17 06:16 Dose: 1 mg Lorazepam (Ativan) 2 mg IVPUSH Q4H PRN PRN Reason: Seizures Magnesium Sulfate (Pharmacy To Dose - Magnesium Replacement) 1 dose .XX ASDIRECTED [facility] Metoprolol Tartrate (Lopressor) 5 mg IVPUSH Q4H PRN PRN Reason: Tachycardia Last Admin: 07/31/17 06:46 Dose: 5 mg Ondansetron HCl (Zofran) 4 mg IV Q6H PRN PRN Reason: Nausea/Vomiting Pantoprazole Sodium (Protonix Iv) 40 mg IV Q12HR [facility] Last Admin: 07/31/17 09:53 Dose: 40 mg Potassium Chloride (Pharmacy To Dose - Potassium Replacement) 1 dose .XX ASDIRECTED [facility] Sodium Chloride (Saline Flush) 10 ml FLUSH ASDIRECTED PRN PRN Reason: Keep Vein Open Last Admin: 07/30/17 18:49 Dose: 10 ml Temazepam (Restoril) 15 mg PO BEDTIME PRN PRN Reason: Sleep Discontinued Medications Fentanyl (Sublimaze) Confirm Administered Dose 100 mcg .ROUTE .STK-MED ONE Stop: 07/31/17 11:46 Sodium Chloride (Normal Saline) 2,000 mls @ 2,000 mls/hr IV ONETIME ONE Stop: 07/30/17 19:35 Last Admin: 07/30/17 18:48 Dose: 2,000 mls/hr Lactated Ringer's (Ringers, Lactated) 1,000 mls @ 250 mls/hr IV ASDIRECTED [facility] Stop: 07/31/17 00:45 Last Admin: 07/30/17 21:45 Dose: 250 mls/hr Pantoprazole Sodium 80 mg/ (Sodium Chloride) 100 mls @ 10 mls/hr IV Q10H FLAKO PRN Reason: 8 MG/HR Last Admin: 07/30/17 21:52 Dose: 8 mg/hr, 10 mls/hr Magnesium Sulfate 2 gm/ Premix 50 mls @ 25 mls/hr IV ONETIME ONE Stop: 07/31/17 00:21 Last Admin: 07/30/17 23:24 Dose: 25 mls/hr Lidocaine HCl (Xylocaine-Mpf 1%) Confirm Administered Dose 4 mls @ as directed .ROUTE .STK-MED ONE Stop: 07/31/17 11:44 Ketamine HCl (Ketalar) Confirm Administered Dose 500 mg .ROUTE .STK-MED ONE Stop: 07/31/17 11:48 Pantoprazole Sodium (Protonix Iv) 80 mg IVPUSH .BOLUS ONE Stop: 07/30/17 19:16 Last Admin: 07/30/17 19:23 Dose: 80 mg Propofol (Diprivan 20 Ml) Confirm Administered Dose 400 mg .ROUTE .STK-MED ONE Stop: 07/31/17 11:45 - Exam General: Alert, Oriented, Cooperative, No Acute Distress HEENT: Pupils Equal, Pupils Reactive, EOMI, Mucous Membr. Moist/[place] Neck: Supple, Trachea Midline, No JVD, No Thyromegaly Lungs: Clear to Auscultation, Normal Respiratory Effort Cardiovascular: Regular Rhythm, Tachycardia (mildly tachycardia) GI/Abdominal Exam: Normal Bowel Sounds, Soft, Non-Tender, No Organomegaly, No Distention, No Abnormal Bruit, No Mass (Male) Exam: Deferred Back Exam: Normal Inspection, Decreased Range of Motion Extremities: Normal Inspection, Normal Range of Motion, Non-Tender, No Pedal Edema, Normal Capillary Refill Peripheral Pulses: 2+: Dorsalis Pedis (L), Dorsalis Pedis (R) Skin: Warm, Dry, Intact Neurological: No New Focal Deficit Psy/Mental Status: Alert, Normal Affect, Normal Mood - Problem List Review Problem List Initiated/Reviewed/Updated: Yes - Plan Plan:: Assessment/Plan: Acute: Symptomatic Hypotension, Improved - Likely from GI Loss - Documented BP of 80s/50s mmHg ---> 107/54 and 108/75 mmHg this am - Currently Receiving Aggressive Volume Resuscitation - Continue to monitor for hemodynamic instability [place] Gastric Contents - Melenic/Bloody Stools - Heme-occult test pending - Risk Factors: ASA - No NSAIDs or ETOH use; No hx/o PUD or GERD - Hgb is 10.3 ---> 8.5 - Continue IV fluids and Protonix drip - Scheduled for endoscopy this morning Abdominal Pain, Improved - Likely 2/2 above - Cannot r/o PUD - Treatment supportive care and as noted above Pre-Renal Azotemia, Improved - BUN 28--> 22 and Cr 1.4 --> 1.0 - 2/2 GI Bleed - Continue IV fluids - Monitor output Substance Abuse - UDS pos for THC Resolved: S/p Presyncopal Episode - 2/2 Volume Loss Lactic Acidosis - LA 2.9 --> 1.2 - 2/2 Localized hypo-perfusion Hypomagnesemia - Mg 1.7 --> 2.0 - Likely from inadequate intake and GI Loss Plan: He is hemodynamically much better Routine AM Labs GS following SW/CM for d/c planning Additional orders as above and pending endoscopy result Code status: 1
[2017-07-31] MEDS ORDERED: Sodium Chloride 0.9% 1,000 ML IV ONE ×2 (16:49→17:46)
[2017-07-31] MEDS ORDERED: Acetaminophen/Butalbital/Caffeine 325-50-40 MG Tab PO PRN (16:51)
--- NOTE | 2017-07-31 18:05 | PCM.SN ---
- Free Text/Narrative Note: [facility] had requested if we can transfer patient out to [place] due to manpower issues. They are limited with personnel and patient requires 2 person for high level security. Called [facility] and spoke to Niru, wedding coordinator. After explaining the situation with her, she asked me to call her back tomorrow after 7 am. Informed [facility] officer about possible transfer but would not be until tomorrow.
[2017-07-31] MEDS ORDERED: Polyethylene Glycol/Electrolytes 4,000 ML Bottle PO ONE (18:35)
[2017-08-01] MEDS: Dextrose 5%-0.45% NaCl 1,000 ML IV SCH ×2 (05:26→13:04)
--- NOTE | 2017-08-01 07:48 | PCM.PREANE ---
Preanesthetic Assessment - Procedure Proposed Procedure: Diagnostic colonoscopy - Anesthesia/Transfusion/Family Hx Anesthesia History: Prior Anesthesia Without Reaction Family History of Anesthesia Reaction: No Transfusion History: No Prior Transfusion(s) - Review of Systems General: Malaise Pulmonary: No Symptoms Cardiovascular: No Symptoms Gastrointestinal: Nausea, Vomiting Neurological: No Symptoms Other: Reports: Easy Bleeding - Physical Assessment NPO Status Date: 08/01/17 NPO Status Time: 00:00 Pulse: 125 O2 Sat by Pulse Oximetry: 98 Respiratory Rate: 19 Blood Pressure: 141/79 Temperature: 37.2 C Vital Signs: Last Vital Signs Temp 37.2 C 08/01/17 04:45 Pulse 106 H 08/01/17 02:48 Resp 19 08/01/17 04:45 BP 100/58 L 08/01/17 04:45 Pulse Ox 98 08/01/17 04:45 Height: 1.73 m Weight: 102.92 kg ASA Class: 2 Mental Status: Alert & Oriented x3 Airway Class: Mallampati = 2 Dentition: Reports: Normal Dentition Thyro-Mental Finger Breadths: 3 Mouth Opening Finger Breadths: 3 ROM/Head Extension: Full Lungs: Clear to Auscultation, Normal Respiratory Effort Cardiovascular: Regular Rate, Regular Rhythm - Lab Values: Laboratory Last Values WBC 11.43 K/mm3 (4.23-9.07) H 07/31/17 18:03 RBC 2.64 M/mm3 (4.63-6.08) L 07/31/17 18:03 Hgb 8.2 gm/L (13.7-17.5) L 07/31/17 18:03 Hct 25.0 % (40.1-51.0) L 07/31/17 18:03 MCV 94.7 fl (79.0-92.2) H 07/31/17 18:03 MCH 31.1 pg (25.7-32.2) 07/31/17 18:03 MCHC 32.8 g/dl (32.2-35.5) 07/31/17 18:03 RDW Std Deviation 40.0 fL (35.1-43.9) 07/31/17 18:03 Plt Count 277 K/mm3 (163-337) 07/31/17 18:03 MPV 9.5 fl (9.4-12.3) 07/31/17 18:03 Neut % (Auto) 59.1 % (34.0-67.9) 07/31/17 18:03 Lymph % (Auto) 28.2 % (21.8-53.1) 07/31/17 18:03 [place] % (Auto) 9.4 % (5.3-12.2) 07/31/17 18:03 Eos % (Auto) 2.8 (0.8-7.0) 07/31/17 18:03 Baso % (Auto) 0.3 % (0.1-1.2) 07/31/17 18:03 Neut # (Auto) 6.77 K/mm3 (1.78-5.38) H 07/31/17 18:03 Lymph # (Auto) 3.22 K/mm3 (1.32-3.57) 07/31/17 18:03 [place] # (Auto) 1.07 K/mm3 (0.30-0.82) H 07/31/17 18:03 Eos # (Auto) 0.32 K/mm3 (0.04-0.54) 07/31/17 18:03 Baso # (Auto) 0.03 K/mm3 (0.01-0.08) 07/31/17 18:03 PT 11.9 SECONDS (8.0-13.0) 07/30/17 18:52 INR 1.09 07/30/17 18:52 APTT 23 SECONDS (22-36) 07/30/17 18:52 D-Dimer, Quantitative 0.37 mg/L (0.19-0.59) 07/30/17 18:52 Sodium 140 mEq/L (136-145) 08/01/17 06:13 Potassium 4.1 mEq/L (3.5-5.1) 08/01/17 06:13 Chloride 108 mEq/L (98-107) H 08/01/17 06:13 Carbon Dioxide 26 mEq/L (21-32) 08/01/17 06:13 Anion Gap 10.1 (5-15) 08/01/17 06:13 BUN 13 mg/dL (7-18) 08/01/17 06:13 Creatinine 1.1 mg/dL (0.7-1.3) 08/01/17 06:13 Est Cr Clr Drug Dosing 89.82 mL/min 08/01/17 06:13 Estimated GFR (MDRD) > 60 mL/min (>60) 08/01/17 06:13 BUN/Creatinine Ratio 11.8 (14-18) L 08/01/17 06:13 Glucose 103 mg/dL (74-106) 08/01/17 06:13 Lactic Acid 1.2 mmol/L (0.4-2.0) 07/30/17 23:05 Calcium 7.6 mg/dL (8.5-10.1) L 08/01/17 06:13 Magnesium 1.7 mg/dl (1.8-2.4) L 08/01/17 06:13 Total Bilirubin 0.4 mg/dL (0.2-1.0) 08/01/17 06:13 AST 24 U/L (15-37) 08/01/17 06:13 ALT 34 U/L (16-63) 08/01/17 06:13 Alkaline Phosphatase 49 U/L (46-116) 08/01/17 06:13 Troponin I 0.024 ng/mL (0.00-0.056) 07/30/17 18:52 Total Protein 4.8 g/dl (6.4-8.2) L 08/01/17 06:13 Albumin 2.5 g/dl (3.4-5.0) L 08/01/17 06:13 Globulin 2.3 gm/dL 08/01/17 06:13 Albumin/Globulin Ratio 1.1 (1-2) 08/01/17 06:13 Lipase 73 U/L (73-393) 07/30/17 18:52 Urine Color Yellow (Yellow) 07/30/17 21:00 Urine Appearance Clear (Clear) 07/30/17 21:00 Urine pH 6.0 (5.0-8.0) 07/30/17 21:00 Ur Specific [place] 1.025 (1.005-1.030) 07/30/17 21:00 Urine Protein Trace (Negative) H 07/30/17 21:00 Urine Glucose (UA) Negative (Negative) 07/30/17 21:00 Urine Ketones Negative (Negative) 07/30/17 21:00 Urine Occult Blood Negative (Negative) 07/30/17 21:00 Urine Nitrite Negative (Negative) 07/30/17 21:00 Urine Bilirubin Negative (Negative) 07/30/17 21:00 Urine Urobilinogen 0.2 (0.2-1.0) 07/30/17 21:00 Ur Leukocyte Esterase Negative (Negative) 07/30/17 21:00 Urine RBC 0-5 /hpf (0-5) 07/30/17 21:00 Urine WBC 0-5 /hpf (0-5) 07/30/17 21:00 Ur Epithelial Cells 0-5 /hpf (0-5) 07/30/17 21:00 Urine Bacteria Few /hpf (FEW) 07/30/17 21:00 Urine Mucus Few /hpf (FEW) 07/30/17 21:00 Salicylates 0.8 mg/dL (2.8-20) L 07/30/17 18:52 Urine Opiates Screen Negative (NEGATIVE) 07/30/17 21:00 Ur Buprenorphine Scrn Negative (NEGATIVE) 07/30/17 21:00 Ur Oxycodone Screen Negative (NEGATIVE) 07/30/17 21:00 Urine Methadone Screen Negative (NEGATIVE) 07/30/17 21:00 Ur Propoxyphene Screen Negative (NEGATIVE) 07/30/17 21:00 Acetaminophen 3 ug/mL (10-30) L 07/30/17 18:52 Ur Barbiturates Screen Negative (NEGATIVE) 07/30/17 21:00 Ur Tricyclics Screen Negative (NEGATIVE) 07/30/17 21:00 Ur Phencyclidine Scrn Negative (NEGATIVE) 07/30/17 21:00 Ur Amphetamine Screen Negative (NEGATIVE) 07/30/17 21:00 U Methamphetamines Scrn Negative (NEGATIVE) 07/30/17 21:00 U Benzodiazepines Scrn Negative (NEGATIVE) 07/30/17 21:00 U Cocaine Metab Screen Negative (NEGATIVE) 07/30/17 21:00 U Marijuana (THC) Screen Presumptive positive (NEGATIVE) H 07/30/17 21:00 Ethyl Alcohol < 0.03 gm% (0.00) 07/30/17 18:52 C.difficile [id number] Presumptive negative 07/30/17 20:52 C. difficile Tox (PCR) Negative 07/30/17 20:52 Blood Type A POSITIVE 07/31/17 17:43 Gel Antibody Screen Negative 07/31/17 17:43 Crossmatch See Detail 07/31/17 17:43 - Allergies Allergies/Adverse Reactions: Allergies Allergy/AdvReac Type Severity Reaction Status Date / Time No Known Allergies Allergy Verified 07/30/17 19:25 - Blood Blood Available: No Product(s) Available: None - Anesthesia Plan Pre-Op Medication Ordered: None - Acknowledgements Anesthesia Type Planned: MAC Pt an Appropriate Candidate for the Planned Anesthesia: Yes Alternatives and Risks of Anesthesia Discussed w Pt/Guardian: Yes Pt/Guardian Understands and Agrees with Anesthesia Plan: Yes PreAnesthesia Questionnaire Respiratory History: Reports: Asthma - SUBSTANCE USE Smoking Status *Q: Unknown Ever Smoked Tobacco Use Within Last Twelve Months: Other (See Below) Days Per Week of Alcohol Use: 0 Number of Drinks Per Day: 0 Total Drinks Per Week: 0 Recreational Drug Use History: No Recreational Drug Type: Reports: Marijuana/Hashish - HOME MEDS Home Medications: Home Meds . [No Known Home Meds] 07/30/17 [History] - CURRENT (IN HOUSE) MEDS Current Meds: Current Medications Acetaminophen (Tylenol) 650 mg PO Q4H PRN PRN Reason: Pain (Mild 1-3)/fever Acetaminophen/Butalbital/Caffeine (Fioricet 325-50-40 Mg) 2 tab PO Q6H PRN PRN Reason: Headache Hydrocodone Bitart/Acetaminophen ([place] 325-5 Mg) 1 tab PO Q4H PRN PRN Reason: Pain (moderate 4-6) Albuterol/Ipratropium (Duoneb 3.0-0.5 Mg/3 Ml) 3 ml NEB Q4H PRN PRN Reason: Shortness Of Breath/wheezing Hydralazine HCl (Apresoline) 20 mg IVPUSH Q4H PRN PRN Reason: Hypertension Hydromorphone HCl (Dilaudid) 1 mg IVPUSH Q3H PRN PRN Reason: Pain (severe 7-10) Last Admin: 07/31/17 18:22 Dose: 1 mg Dextrose/Sodium Chloride (Dextrose 5%-1/2 Ns) 1,000 mls @ 125 mls/hr IV ASDIRECTED FLAKO Last Admin: 08/01/17 05:26 Dose: 125 mls/hr Promethazine HCl 12.5 mg/ (Sodium Chloride) 50.5 mls @ 100 mls/hr IV Q6H PRN PRN Reason: Nausea/Vomiting Lorazepam (Ativan) 1 mg IV Q6H PRN PRN Reason: Anxiety Last Admin: 07/31/17 06:16 Dose: 1 mg Lorazepam (Ativan) 2 mg IVPUSH Q4H PRN PRN Reason: Seizures Magnesium Sulfate (Pharmacy To Dose - Magnesium Replacement) 1 dose .XX ASDIRECTED [facility] Metoprolol Tartrate (Lopressor) 5 mg IVPUSH Q4H PRN PRN Reason: Tachycardia Last Admin: 07/31/17 19:59 Dose: 5 mg Ondansetron HCl (Zofran) 4 mg IV Q6H PRN PRN Reason: Nausea/Vomiting Pantoprazole Sodium (Protonix Iv) 40 mg IV Q12HR [facility] Last Admin: 08/01/17 00:00 Dose: 40 mg Potassium Chloride (Pharmacy To Dose - Potassium Replacement) 1 dose .XX ASDIRECTED [facility] Sodium Chloride (Saline Flush) 10 ml FLUSH ASDIRECTED PRN PRN Reason: Keep Vein Open Last Admin: 07/30/17 18:49 Dose: 10 ml Temazepam (Restoril) 15 mg PO BEDTIME PRN PRN Reason: Sleep Discontinued Medications Fentanyl (Sublimaze) Confirm Administered Dose 100 mcg .ROUTE .STK-MED ONE Stop: 07/31/17 11:46 Sodium Chloride (Normal Saline) 2,000 mls @ 2,000 mls/hr IV ONETIME ONE Stop: 07/30/17 19:35 Last Admin: 07/30/17 18:48 Dose: 2,000 mls/hr Lactated Ringer's (Ringers, Lactated) 1,000 mls @ 250 mls/hr IV ASDIRECTED FLAKO Stop: 07/31/17 00:45 Last Admin: 07/30/17 21:45 Dose: 250 mls/hr Pantoprazole Sodium 80 mg/ (Sodium Chloride) 100 mls @ 10 mls/hr IV Q10H FLAKO PRN Reason: 8 MG/HR Last Admin: 07/30/17 21:52 Dose: 8 mg/hr, 10 mls/hr Magnesium Sulfate 2 gm/ Premix 50 mls @ 25 mls/hr IV ONETIME ONE Stop: 07/31/17 00:21 Last Admin: 07/30/17 23:24 Dose: 25 mls/hr Lidocaine HCl (Xylocaine-Mpf 1%) Confirm Administered Dose 4 mls @ as directed .ROUTE .STK-MED ONE Stop: 07/31/17 11:44 Sodium Chloride (Normal Saline) 1,000 mls @ 999 mls/hr IV ONETIME ONE Stop: 07/31/17 17:49 Last Admin: 07/31/17 17:08 Dose: 999 mls/hr Sodium Chloride (Normal Saline) 1,000 mls @ 50 mls/hr IV ONETIME ONE Stop: 08/01/17 13:45 Last Admin: 07/31/17 23:30 Dose: 50 mls/hr Ketamine HCl (Ketalar) Confirm Administered Dose 500 mg .ROUTE .STK-MED ONE Stop: 07/31/17 11:48 Pantoprazole Sodium (Protonix Iv) 80 mg IVPUSH .BOLUS ONE Stop: 07/30/17 19:16 Last Admin: 07/30/17 19:23 Dose: 80 mg Polyethylene Glycol/Electrolytes (Golytely) 4,000 ml PO ONETIME ONE Stop: 07/31/17 18:36 Last Admin: 07/31/17 18:46 Dose: 4,000 ml Propofol (Diprivan 20 Ml) Confirm Administered Dose 400 mg .ROUTE .STK-MED ONE Stop: 07/31/17 11:45
--- NOTE | 2017-08-01 08:12 | CONS ---
CONSULTING PHYSICIAN: Star Torres MD DATE OF CONSULTATION: 07/31/2017 HISTORY: This is a 37-year-old male who came into the emergency room complaining of abdominal pain, chest pain, vomiting, diarrhea, and was found to have coffee emesis and black tarry stools. His hemoglobin had dropped to about 9. It was earlier today 10.3. He has only had one black tarry stool at midnight, that was his last one, he has not had any since then. The patient does have a drug history and alcohol use history, but has been under incarceration for about a month and has been free of any drug use, alcohol, and nonsteroidals. PAST MEDICAL HISTORY: Asthma. FAMILY HISTORY: Not helpful. SOCIAL HISTORY: No known smoke. REVIEW OF SYSTEMS: He does have abdominal pain and back pain. Denies shortness of breath, cough, hoarseness, wheezing, fainting, weakness, numbness, or convulsions. PHYSICAL EXAMINATION: GENERAL: Reveals alert and minimally cooperative male. VITAL SIGNS: Temperature 36, heart rate regular at 100. EYES: Sclerae white. Extraocular muscle motion normal. Oral cavity healthy. NECK: Supple. No nodes. No thyromegaly. LUNGS: Clear. No rales, rhonchi, fremitus, or dullness. HEART: Heart tones regular rate. ABDOMEN: Soft. No tenderness, guarding, or rebound. NEUROLOGIC: Moves all 4 extremities. No sensorineural deficit. SKIN: Shows multiple tattoos. Cranial nerves 3 through 12 intact. PSYCHIATRIC: Difficult to assess, the patient mumbles and is a very poor historian and unwilling to contribute. ASSESSMENT: Upper gastrointestinal bleed. PLAN: For upper GI endoscopy. Risks and complications discussed. The patient understands and consents. [facility] /[id number]
--- NOTE | 2017-08-01 08:15 | OR ---
DATE OF OPERATION: 07/31/2017 SURGEON: Star Torres MD PREOPERATIVE DIAGNOSIS: GI bleed. POSTOPERATIVE DIAGNOSIS: GI bleed. OPERATION PERFORMED: Esophagogastroduodenoscopy with biopsy. FINDINGS: Normal study. ANESTHESIA: Procedure done under IV sedation. DESCRIPTION OF PROCEDURE: The patient was taken to the GI room, placed in the supine position, connected to monitoring equipment, given IV sedation. The patient was placed in left lateral position. Bite block was inserted. Video Olympus gastroscope placed in the posterior oropharynx under direct vision threaded past down the esophagus following the NG tube and into the stomach. Stomach was insufflated and scope passed through the pylorus to the second portion of the duodenum. Second portion of the duodenum, duodenal bulb, pyloric channel were reviewed and the scope withdrawn, were normal. Antrum, body and fundus and cardia of the stomach were viewed and J-maneuver was performed. No pathology was seen. Biopsies of the antrum was performed. Scope was withdrawn to the GE junction which was located at 40 cm. There was no hiatal hernia. Rest of the esophagus was viewed as the scope withdrawn and was normal. The patient tolerated the procedure, sent to recovery room in a stable condition and specimen sent to pathology in a labeled container. ESTIMATED BLOOD LOSS: MMODAL /[id number]
[2017-08-01] MEDS: Pantoprazole 40 MG Vial IV SCH ×3 (09:21→20:58)
[2017-08-01] MEDS ORDERED: Magnesium Sulfate/Water 2 GM in Premix Bag 1 BAG IV ONE (10:00)
[2017-08-01] MEDS ORDERED: Propofol 200 MG/20 ML SDV ONE ×2 (11:46→12:54)
[2017-08-01] MEDS ORDERED: Lidocaine 1% 4 ML ONE (11:46)
[2017-08-01] MEDS ORDERED: Midazolam 1 MG/ML 2 ML SDV ONE (11:47)
[2017-08-01] MEDS ORDERED: fentaNYL 100 MCG/2 ML SDV ONE (11:47)
[2017-08-01] MEDS ORDERED: Lactated Ringers 1,000 ML ONE (11:49)
--- NOTE | 2017-08-01 12:49 | PCM.OPNOTE ---
- General Post-Op/Procedure Note Date of Surgery/Procedure: 08/01/17 Operative Procedure(s): colonoscopy to cecum Pre Op Diagnosis: normal study Post-Op Diagnosis: Same Anesthesia Technique: MAC Primary Surgeon: Star Torres EBL in mLs: 0 Complications: None Condition: Good Free Text/Narrative:: Intake & Output 07/31/17 08/01/17 08/01/17 23:59 07:59 15:59 Intake Total 950 9345 Output Total 1300 600 500 Balance -350 8745 -500
--- NOTE | 2017-08-01 13:17 | PCM.PN ---
- General Info Date of Service: 08/01/17 Admission Dx/Problem (Free Text): Melena Subjective Update: Follow Up Functional Status: Reports: Pain Controlled, Urinating, New Symptoms. Denies: Ambulating - Review of Systems General: Denies: Fever, Weakness, Fatigue, Malaise, Chills HEENT: Reports: No Symptoms Pulmonary: Denies: Shortness of Breath Cardiovascular: Denies: Chest Pain, Palpitations, Dyspnea on Exertion, Lightheadedness Gastrointestinal: Reports: Flatus. Denies: Abdominal Pain, Constipation, Diarrhea, Difficulty Swallowing, Hematochezia, Melena, Nausea, Vomiting Genitourinary: Reports: No Symptoms Musculoskeletal: Reports: No Symptoms Skin: Denies: Cyanosis, Jaundice, Mottled, Pallor, Diaphoresis, Pruritis, Rash Neurological: Denies: Confusion, Difficulty Walking, Weakness, Gait Disturbance Psychiatric: Denies: Confusion, Depression, Mood Lability, Anxiety, Agitation, Cravings, Hallucinations, Suicidal Ideation, Homicidal Ideation Systems Review Comment:: No significant overnight or acute issues. He looks better clinically. He has no issues with blood transfusion last night. His current Hgb is 8.3 . He is scheduled for colonoscopy at noon. - Patient Data Vitals - Most Recent: Last Vital Signs Temp 36.6 C 08/01/17 12:57 Pulse 125 H 08/01/17 07:48 Resp 10 L 08/01/17 12:57 BP 121/72 08/01/17 12:57 Pulse Ox 96 08/01/17 12:57 Weight - Most Recent: 102.92 kg I&O - Last 24 Hours: Intake & Output 07/31/17 08/01/17 08/01/17 22:59 06:59 14:59 Intake Total 950 9345 1050 Output Total 1300 600 500 Balance -350 8745 550 Lab Results Last 24 Hours: Laboratory Results - last 24 hr 07/31/17 07/31/17 08/01/17 Range/Units 17:43 18:03 06:13 WBC 11.43 H (4.23-9.07) K/mm3 RBC 2.64 L (4.63-6.08) M/mm3 Hgb 8.2 L (13.7-17.5) gm/L Hct 25.0 L (40.1-51.0) % MCV 94.7 H (79.0-92.2) fl MCH 31.1 (25.7-32.2) pg MCHC 32.8 (32.2-35.5) g/dl RDW Std Deviation 40.0 (35.1-43.9) fL Plt Count 277 (163-337) K/mm3 MPV 9.5 (9.4-12.3) fl Neut % (Auto) 59.1 (34.0-67.9) % Lymph % (Auto) 28.2 (21.8-53.1) % Love % (Auto) 9.4 (5.3-12.2) % Eos % (Auto) 2.8 (0.8-7.0) Baso % (Auto) 0.3 (0.1-1.2) % Neut # (Auto) 6.77 H (1.78-5.38) K/mm3 Lymph # (Auto) 3.22 (1.32-3.57) K/mm3 Love # (Auto) 1.07 H (0.30-0.82) K/mm3 Eos # (Auto) 0.32 (0.04-0.54) K/mm3 Baso # (Auto) 0.03 (0.01-0.08) K/mm3 Sodium 140 (136-145) mEq/L Potassium 4.1 (3.5-5.1) mEq/L Chloride 108 H (98-107) mEq/L Carbon Dioxide 26 (21-32) mEq/L Anion Gap 10.1 (5-15) BUN 13 (7-18) mg/dL Creatinine 1.1 (0.7-1.3) mg/dL Est Cr Clr Drug Dosing 89.82 mL/min Estimated GFR (MDRD) > 60 (>60) mL/min BUN/Creatinine Ratio 11.8 L (14-18) Glucose 103 (74-106) mg/dL Calcium 7.6 L (8.5-10.1) mg/dL Magnesium 1.7 L (1.8-2.4) mg/dl Total Bilirubin 0.4 (0.2-1.0) mg/dL AST 24 (15-37) U/L ALT 34 (16-63) U/L Alkaline Phosphatase 49 (46-116) U/L Total Protein 4.8 L (6.4-8.2) g/dl Albumin 2.5 L (3.4-5.0) g/dl Globulin 2.3 gm/dL Albumin/Globulin Ratio 1.1 (1-2) Blood Type A POSITIVE Gel Antibody Screen Negative Crossmatch See Detail 08/01/17 Range/Units 06:13 WBC 6.17 (4.23-9.07) K/mm3 RBC 2.67 L (4.63-6.08) M/mm3 Hgb 8.3 L (13.7-17.5) gm/L Hct 24.7 L (40.1-51.0) % MCV 92.5 H (79.0-92.2) fl MCH 31.1 (25.7-32.2) pg MCHC 33.6 (32.2-35.5) g/dl RDW Std Deviation 42.3 (35.1-43.9) fL Plt Count 201 (163-337) K/mm3 MPV 9.9 (9.4-12.3) fl Neut % (Auto) 52.7 (34.0-67.9) % Lymph % (Auto) 33.7 (21.8-53.1) % Love % (Auto) 8.9 (5.3-12.2) % Eos % (Auto) 4.2 (0.8-7.0) Baso % (Auto) 0.3 (0.1-1.2) % Neut # (Auto) 3.25 (1.78-5.38) K/mm3 Lymph # (Auto) 2.08 (1.32-3.57) K/mm3 Love # (Auto) 0.55 (0.30-0.82) K/mm3 Eos # (Auto) 0.26 (0.04-0.54) K/mm3 Baso # (Auto) 0.02 (0.01-0.08) K/mm3 Sodium (136-145) mEq/L Potassium (3.5-5.1) mEq/L Chloride (98-107) mEq/L Carbon Dioxide (21-32) mEq/L Anion Gap (5-15) BUN (7-18) mg/dL Creatinine (0.7-1.3) mg/dL Est Cr Clr Drug Dosing mL/min Estimated GFR (MDRD) (>60) mL/min BUN/Creatinine Ratio (14-18) Glucose (74-106) mg/dL Calcium (8.5-10.1) mg/dL Magnesium (1.8-2.4) mg/dl Total Bilirubin (0.2-1.0) mg/dL AST (15-37) U/L ALT (16-63) U/L Alkaline Phosphatase (46-116) U/L Total Protein (6.4-8.2) g/dl Albumin (3.4-5.0) g/dl Globulin gm/dL Albumin/Globulin Ratio (1-2) Blood Type Gel Antibody Screen Crossmatch [place] Results Last 24 Hours: Microbiology 07/30/17 23:05 Aerobic Blood Culture - Preliminary Blood - Venous - Lab Draw NO GROWTH AFTER 1 DAY Anaerobic Blood Culture - Final Med Orders - Current: Current Medications Acetaminophen (Tylenol) 650 mg PO Q4H PRN PRN Reason: Pain (Mild 1-3)/fever Acetaminophen/Butalbital/Caffeine (Fioricet 325-50-40 Mg) 2 tab PO Q6H PRN PRN Reason: Headache Hydrocodone Bitart/Acetaminophen ([place] 325-5 Mg) 1 tab PO Q4H PRN PRN Reason: Pain (moderate 4-6) Albuterol/Ipratropium (Duoneb 3.0-0.5 Mg/3 Ml) 3 ml NEB Q4H PRN PRN Reason: Shortness Of Breath/wheezing Hydralazine HCl (Apresoline) 20 mg IVPUSH Q4H PRN PRN Reason: Hypertension Hydromorphone HCl (Dilaudid) 1 mg IVPUSH Q3H PRN PRN Reason: Pain (severe 7-10) Last Admin: 07/31/17 18:22 Dose: 1 mg Dextrose/Sodium Chloride (Dextrose 5%-1/2 Ns) 1,000 mls @ 125 mls/hr IV ASDIRECTED [facility] [place] Last Admin: 08/01/17 13:04 Dose: 125 mls/hr Promethazine HCl 12.5 mg/ (Sodium Chloride) 50.5 mls @ 100 mls/hr IV Q6H PRN PRN Reason: Nausea/Vomiting Lorazepam (Ativan) 1 mg IV Q6H PRN PRN Reason: Anxiety Last Admin: 07/31/17 06:16 Dose: 1 mg Lorazepam (Ativan) 2 mg IVPUSH Q4H PRN PRN Reason: Seizures Magnesium Sulfate (Pharmacy To Dose - Magnesium Replacement) 1 dose .XX ASDIRECTED [facility] [place] Metoprolol Tartrate (Lopressor) 5 mg IVPUSH Q4H PRN PRN Reason: Tachycardia Last Admin: 07/31/17 19:59 Dose: 5 mg Ondansetron HCl (Zofran) 4 mg IV Q6H PRN PRN Reason: Nausea/Vomiting Pantoprazole Sodium (Protonix Iv) 40 mg IV Q12HR [facility] [place] Last Admin: 08/01/17 09:21 Dose: 40 mg Potassium Chloride (Pharmacy To Dose - Potassium Replacement) 1 dose .XX ASDIRECTED [facility] [place] Sodium Chloride (Saline Flush) 10 ml FLUSH ASDIRECTED PRN PRN Reason: Keep Vein Open Last Admin: 07/30/17 18:49 Dose: 10 ml Temazepam (Restoril) 15 mg PO BEDTIME PRN PRN Reason: Sleep Discontinued Medications Fentanyl (Sublimaze) Confirm Administered Dose 100 mcg .ROUTE .STK-MED ONE Stop: 07/31/17 11:46 Fentanyl (Sublimaze) Confirm Administered Dose 100 mcg .ROUTE .STK-MED ONE Stop: 08/01/17 11:48 Sodium Chloride (Normal Saline) 2,000 mls @ 2,000 mls/hr IV ONETIME ONE Stop: 07/30/17 19:35 Last Admin: 07/30/17 18:48 Dose: 2,000 mls/hr Lactated Ringer's (Ringers, Lactated) 1,000 mls @ 250 mls/hr IV ASDIRECTED [facility] [place] Stop: 07/31/17 00:45 Last Admin: 07/30/17 21:45 Dose: 250 mls/hr Pantoprazole Sodium 80 mg/ (Sodium Chloride) 100 mls @ 10 mls/hr IV Q10H FLAKO PRN Reason: 8 MG/HR Last Admin: 07/30/17 21:52 Dose: 8 mg/hr, 10 mls/hr Magnesium Sulfate 2 gm/ Premix 50 mls @ 25 mls/hr IV ONETIME ONE Stop: 07/31/17 00:21 Last Admin: 07/30/17 23:24 Dose: 25 mls/hr Lidocaine HCl (Xylocaine-Mpf 1%) Confirm Administered Dose 4 mls @ as directed .ROUTE .STK-MED ONE Stop: 07/31/17 11:44 Sodium Chloride (Normal Saline) 1,000 mls @ 999 mls/hr IV ONETIME ONE Stop: 07/31/17 17:49 Last Admin: 07/31/17 17:08 Dose: 999 mls/hr Sodium Chloride (Normal Saline) 1,000 mls @ 50 mls/hr IV ONETIME ONE Stop: 08/01/17 13:45 Last Admin: 07/31/17 23:30 Dose: 50 mls/hr Magnesium Sulfate 2 gm/ Premix 50 mls @ 25 mls/hr IV ONETIME ONE Stop: 08/01/17 11:59 Last Admin: 08/01/17 10:32 Dose: 25 mls/hr Lidocaine HCl (Xylocaine-Mpf 1%) Confirm Administered Dose 4 mls @ as directed .ROUTE .STK-MED ONE Stop: 08/01/17 11:47 Lactated Ringer's (Ringers, Lactated) Confirm Administered Dose 1,000 mls @ as directed .ROUTE .STK-MED ONE Stop: 08/01/17 11:50 Ketamine HCl (Ketalar) Confirm Administered Dose 500 mg .ROUTE .STK-MED ONE Stop: 07/31/17 11:48 Midazolam HCl (Versed 1 Mg/Ml) Confirm Administered Dose 2 mg .ROUTE .STK-MED ONE Stop: 08/01/17 11:48 Pantoprazole Sodium (Protonix Iv) 80 mg IVPUSH .BOLUS ONE Stop: 07/30/17 19:16 Last Admin: 07/30/17 19:23 Dose: 80 mg Polyethylene Glycol/Electrolytes (Golytely) 4,000 ml PO ONETIME ONE Stop: 07/31/17 18:36 Last Admin: 07/31/17 18:46 Dose: 4,000 ml Propofol (Diprivan 20 Ml) Confirm Administered Dose 400 mg .ROUTE .STK-MED ONE Stop: 07/31/17 11:45 Propofol (Diprivan 20 Ml) Confirm Administered Dose 200 mg .ROUTE .STK-MED ONE Stop: 08/01/17 11:47 Propofol (Diprivan 20 Ml) Confirm Administered Dose 200 mg .ROUTE .STK-MED ONE Stop: 09/22/17 12:55 - Exam General: Alert, Oriented, Cooperative HEENT: Pupils Equal, Pupils Reactive, EOMI, Mucous Membr. Moist/[place] Neck: Supple, Trachea Midline, No JVD, No Thyromegaly Lungs: Clear to Auscultation, Normal Respiratory Effort Cardiovascular: Regular Rate, Regular Rhythm GI/Abdominal Exam: Normal Bowel Sounds, Soft, Non-Tender, No Organomegaly, No Distention, No Abnormal Bruit, No Mass (Male) Exam: Deferred Back Exam: Normal Inspection Extremities: Normal Inspection, Normal Range of Motion, Non-Tender, No Pedal Edema, Normal Capillary Refill Peripheral Pulses: 2+: Dorsalis Pedis (L), Dorsalis Pedis (R) Skin: Warm, Dry, Intact, Other (Multiple tattoos) Neurological: No New Focal Deficit Psy/Mental Status: Alert, Normal Affect, Normal Mood - Problem List Review Problem List Initiated/Reviewed/Updated: Yes - My Orders Last 24 Hours: My Active Orders 07/31/17 16:51 Acetaminophen/Butalbital/Caff [Fioricet 325-50-40 MG] 2 tab PO Q6H PRN 07/31/17 17:43 RED BLOOD CELLS LP [BBK] Stat TYPE AND SCREEN [BBK] Stat Transfuse Red Blood Cells [COMM] Stat 07/31/17 21:36 Blood Transfusion Reflex Orders [OM.PC] Routine - Plan Plan:: Assessment/Plan: Acute: Anemia - 2/2 GI Bleed - S/p 2 units of PRB transfusion - Hgb has not changed much Melena/Black Stools - Unclear in etiology - EGD was normal - Scheduled for colonoscopy today - Bowel prepped last night Hypomagnesemia - Mg 1.7 - Likely from inadequate intake and GI Loss Substance Abuse - UDS pos for THC Chest/Abn X-Ray - Bilateral chest nodule:granuloma Resolved: S/p Presyncopal Episode - 2/2 Volume Loss Lactic Acidosis - LA 2.9 --> 1.2 - 2/2 Localized hypo-perfusion Symptomatic Hypotension, Improved - Likely from GI Loss - Documented BP of 80s/50s mmHg ---> 107/54 and 108/75 mmHg this am - Currently Receiving Aggressive Volume Resuscitation - Continue to monitor for hemodynamic instability [place] Gastric Contents - Melenic/Bloody Stools - Heme-occult test pending - Risk Factors: ASA - No NSAIDs or ETOH use; No hx/o PUD or GERD - Hgb is 10.3 ---> 8.5 - Continue IV fluids and Protonix drip - Scheduled for endoscopy this morning Abdominal Pain, Improved - Likely 2/2 above - Cannot r/o PUD - Treatment supportive care and as noted above Pre-Renal Azotemia, Improved - BUN 28--> 22 and Cr 1.4 --> 1.0 - 2/2 GI Bleed - Continue IV fluids - Monitor output Plan: He remains hemodynamically stable Routine AM Labs Colonoscopy today GS following SW/CM for d/c planning Additional orders as above and pending colonoscopy Code status: 1
--- NOTE | 2017-08-01 16:09 | PCM.SN ---
- Free Text/Narrative Note: Patient underwent colonoscopy and tolerated the procedure well. No reported abnormality by Dr. Torres. His repeat Hgb is 9.2 Will order iron infusion
[2017-08-01] MEDS ORDERED: Multivitamins,Therapeutic Tab PO SCH (21:00)
[2017-08-01] MEDS ORDERED: Folic Acid 1 MG Tab PO SCH (21:00)
[2017-08-02] MEDS: Pantoprazole 40 MG Vial IV SCH (09:23)
--- NOTE | 2017-08-02 11:05 | PCM.DCSUM1 ---
Discharge Summary - Hospital Course Brief History: This is 37 yo black male with no significant past medical hx/o who comes for evaluation of near syncopal episode associated with abdominal pain , chest pain, vomiting, diarrhea melenic stools and was found to have pos coffee -ground gastric suction via NGT. He was admitted for anemia work up. - Discharge Data Discharge Date: 08/02/17 Discharge Disposition: DC/Tfer to Other 70 Condition: Good - Discharge Diagnosis/Problem(s) (1) GI bleeding SNOMED Code(s): 90556582 ICD Code: K92.2 - GASTROINTESTINAL HEMORRHAGE, UNSPECIFIED Status: Acute Current Visit: Yes Qualifiers: GI bleed type/associated pathology: unspecified gastrointestinal hemorrhage type Qualified Code(s): K92.2 - Gastrointestinal hemorrhage, unspecified (2) Orthostatic hypotension SNOMED Code(s): 85729370 ICD Code: I95.1 - ORTHOSTATIC HYPOTENSION Status: Resolved Current Visit : Yes - Patient Summary/Data Operative Procedure(s) Performed: EGD and colonoscopy Complications: None Consults: Dr. Torres Labs Pending at D/C: Recommend repeat CBC in 1 week Recommended Follow-up Testing/Procedures: Follow up with PCP in 1 week Hospital Course: Patient was primarily admitted for symptomatic anemia workup. Patient presented on admission with presyncope associated with nausea vomiting diarrhea. Patient carried no significant past medical history and denied being on NSAIDs. He also denied using alcohol or illicit drug use. However his UDS showed positive for marijuana and a trace of blood alcohol. In the emergency department, he received initial treatment before he was sent to the floor for further management. His NG contents showed coffee-ground emesis and therefore general surgery was consulted for endoscopic procedures. The patient's Hgb dropped to as low as 7.7 but he received 2 units of red blood cells. He also received a one-time iron infusion to improve his level at 9.2. His documented hemoglobin the day of discharge was 9. Dr. Torres performed EGD and Colonoscopy with benign results. His hospital course was uncomplicated. He developed no complications during this admission. Patient was advised to follow-up with the correctional facility physician with a repeat CBC in one week. Patient was advised seek immediate if his symptoms persist or get worse. He may benefit with capsule endoscopy and or double-balloon enteroscopy. The patient will now be discharged in the hopes that his hemoglobin will continues to improve. Patient expressed understanding and in agreement sudden with the plans as discussed above. All questions were answered. - Patient Instructions Diet: Usual Diet as Tolerated Activity: As Tolerated Driving: Do Not Drive Showering/Bathing: May Shower Notify Provider of: Fever, Increased Pain, Nausea and/or Vomiting Other/Special Instructions: - Please take all medications as directed. - Avoid alcohol and NSAIDs: Motrin, Aleve, Ibuprofen, BC and Goody's Powder. - If your symptom persist or get worse, follow up with your doctor or go to the nearest medical facility and seek immediate care - Discharge Plan Prescriptions/Med Rec: Ascorbic Acid 250 mg PO TID #90 tablet Ferrous Sulfate [Iron] 325 mg PO TID #90 tablet Home Medications: Home Meds Ascorbic Acid 250 mg PO TID #90 tablet 08/02/17 [Rx] Ferrous Sulfate [Iron] 325 mg PO TID #90 tablet 08/02/17 [Rx] Patient Handouts: Hypotension, [id number], Near-Syncope, [id number]-[id number], Gastrointestinal Bleeding, [id number] - Discharge Summary/Plan Comment DC Time >30 min.: Yes (45 mins) Discharge Summary/Plan Comment: [facility]charge back to [facility] - General Info Date of Service: 08/02/17 Admission Dx/Problem (Free Text: Melena Subjective Update: Follow Up Functional Status: Reports: Pain Controlled, Tolerating Diet, Ambulating, Urinating, New Symptoms (Sma) - Review of Systems General: Denies: Fever, Weakness, Fatigue, Malaise, Chills HEENT: Reports: No Symptoms Pulmonary: Denies: Shortness of Breath Cardiovascular: Denies: Chest Pain, Palpitations, Dyspnea on Exertion, Lightheadedness Gastrointestinal: Denies: Abdominal Pain, Nausea, Vomiting Genitourinary: Denies: Dysuria, Frequency, Burning, Pain, Urgency Musculoskeletal: Reports: No Symptoms Skin: Denies: Cyanosis, Pallor, Diaphoresis Neurological: Denies: Confusion, Dizziness, Headache, Syncope, Difficulty Walking, Weakness, Gait Disturbance Psychiatric: Denies: Confusion, Depression, Mood Lability, Anxiety, Agitation, Cravings, Hallucinations, Suicidal Ideation Systems Review Comment: No overnight or acute issues. No report or rectal bleed or black stools. He has no complaints. - Patient Data Vitals - Most Recent: Last Vital Signs Temp 36.7 C 09/23/17 08:31 Pulse 102 H 08/02/17 08:31 Resp 14 08/02/17 08:31 BP 118/60 08/02/17 08:31 Pulse Ox 94 L 08/02/17 08:31 Weight - Most Recent: 97.84 kg I&O - Last 24 hours: Intake & Output 08/01/17 08/02/17 08/02/17 22:59 06:59 14:59 Intake Total 2371 950 Output Total 1999 Balance 371 950 Lab Results - Last 24 hrs: Laboratory Results - last 24 hr 07/31/17 08/01/17 08/02/17 Range/Units 17:43 15:17 07:22 WBC (4.23-9.07) K/mm3 RBC (4.63-6.08) M/mm3 Hgb 9.2 L (13.7-17.5) gm/L Hct 27.3 L (40.1-51.0) % MCV (79.0-92.2) fl MCH (25.7-32.2) pg MCHC (32.2-35.5) g/dl RDW Std Deviation (35.1-43.9) fL Plt Count (163-337) K/mm3 MPV (9.4-12.3) fl Neut % (Auto) (34.0-67.9) % Lymph % (Auto) (21.8-53.1) % [place] % (Auto) (5.3-12.2) % Eos % (Auto) (0.8-7.0) Baso % (Auto) (0.1-1.2) % Neut # (Auto) (1.78-5.38) K/mm3 Lymph # (Auto) (1.32-3.57) K/mm3 [place] # (Auto) (0.30-0.82) K/mm3 Eos # (Auto) (0.04-0.54) K/mm3 Baso # (Auto) (0.01-0.08) K/mm3 Sodium 141 (136-145) mEq/L Potassium 3.8 (3.5-5.1) mEq/L Chloride 110 H (98-107) mEq/L Carbon Dioxide 26 (21-32) mEq/L Anion Gap 8.8 (5-15) BUN 6 L (7-18) mg/dL Creatinine 1.1 (0.7-1.3) mg/dL Est Cr Clr Drug Dosing 89.82 mL/min Estimated GFR (MDRD) > 60 (>60) mL/min BUN/Creatinine Ratio 5.5 L (14-18) Glucose 98 (74-106) mg/dL Calcium 8.2 L (8.5-10.1) mg/dL Magnesium 2.1 (1.8-2.4) mg/dl Total Bilirubin 0.3 (0.2-1.0) mg/dL AST 34 (15-37) U/L ALT 47 (16-63) U/L Alkaline Phosphatase 54 (46-116) U/L Total Protein 5.3 L (6.4-8.2) g/dl Albumin 2.7 L (3.4-5.0) g/dl Globulin 2.6 gm/dL Albumin/Globulin Ratio 1.0 (1-2) Blood Type A POSITIVE Gel Antibody Screen Negative Crossmatch See Detail 08/02/17 Range/Units 07:22 WBC 7.09 (4.23-9.07) K/mm3 RBC 2.75 L (4.63-6.08) M/mm3 Hgb 8.4 L (13.7-17.5) gm/L Hct 25.7 L (40.1-51.0) % MCV 93.5 H (79.0-92.2) fl MCH 30.5 (25.7-32.2) pg MCHC 32.7 (32.2-35.5) g/dl RDW Std Deviation 42.6 (35.1-43.9) fL Plt Count 222 (163-337) K/mm3 MPV 9.2 L (9.4-12.3) fl Neut % (Auto) 60.9 (34.0-67.9) % Lymph % (Auto) 23.7 (21.8-53.1) % [place] % (Auto) 9.7 (5.3-12.2) % Eos % (Auto) 4.9 (0.8-7.0) Baso % (Auto) 0.4 (0.1-1.2) % Neut # (Auto) 4.31 (1.78-5.38) K/mm3 Lymph # (Auto) 1.68 (1.32-3.57) K/mm3 [place] # (Auto) 0.69 (0.30-0.82) K/mm3 Eos # (Auto) 0.35 (0.04-0.54) K/mm3 Baso # (Auto) 0.03 (0.01-0.08) K/mm3 Sodium (136-145) mEq/L Potassium (3.5-5.1) mEq/L Chloride (98-107) mEq/L Carbon Dioxide (21-32) mEq/L Anion Gap (5-15) BUN (7-18) mg/dL Creatinine (0.7-1.3) mg/dL Est Cr Clr Drug Dosing mL/min Estimated GFR (MDRD) (>60) mL/min BUN/Creatinine Ratio (14-18) Glucose (74-106) mg/dL Calcium (8.5-10.1) mg/dL Magnesium (1.8-2.4) mg/dl Total Bilirubin (0.2-1.0) mg/dL AST (15-37) U/L ALT (16-63) U/L Alkaline Phosphatase (46-116) U/L Total Protein (6.4-8.2) g/dl Albumin (3.4-5.0) g/dl Globulin gm/dL Albumin/Globulin Ratio (1-2) Blood Type Gel Antibody Screen Crossmatch CHARO Results - Last 24 hrs: Microbiology 07/30/17 23:05 Aerobic Blood Culture - Preliminary Blood - Venous - Lab Draw NO GROWTH AFTER 2 DAYS Anaerobic Blood Culture - Final Med Orders - Current: Current Medications Acetaminophen (Tylenol) 650 mg PO Q4H PRN PRN Reason: Pain (Mild 1-3)/fever Acetaminophen/Butalbital/Caffeine (Fioricet 325-50-40 Mg) 2 tab PO Q6H PRN PRN Reason: Headache Hydrocodone Bitart/Acetaminophen ([place] 325-5 Mg) 1 tab PO Q4H PRN PRN Reason: Pain (moderate 4-6) Albuterol/Ipratropium (Duoneb 3.0-0.5 Mg/3 Ml) 3 ml NEB Q4H PRN PRN Reason: Shortness Of Breath/wheezing Folic Acid (Folic Acid) 1 mg PO BEDTIME FLAKO Last Admin: 08/01/17 20:58 Dose: 1 mg Hydralazine HCl (Apresoline) 20 mg IVPUSH Q4H PRN PRN Reason: Hypertension Hydromorphone HCl (Dilaudid) 1 mg IVPUSH Q3H PRN PRN Reason: Pain (severe 7-10) Last Admin: 07/31/17 18:22 Dose: 1 mg Promethazine HCl 12.5 mg/ (Sodium Chloride) 50.5 mls @ 100 mls/hr IV Q6H PRN PRN Reason: Nausea/Vomiting Lorazepam (Ativan) 1 mg IV Q6H PRN PRN Reason: Anxiety Last Admin: 07/31/17 06:16 Dose: 1 mg Lorazepam (Ativan) 2 mg IVPUSH Q4H PRN PRN Reason: Seizures Magnesium Sulfate (Pharmacy To Dose - Magnesium Replacement) 1 dose .XX ASDIRECTED [facility] Metoprolol Tartrate (Lopressor) 5 mg IVPUSH Q4H PRN PRN Reason: Tachycardia Last Admin: 07/31/17 19:59 Dose: 5 mg Multivitamins (Thera) 1 each PO BEDTIME FLAKO Last Admin: 08/01/17 20:58 Dose: 1 each Ondansetron HCl (Zofran) 4 mg IV Q6H PRN PRN Reason: Nausea/Vomiting Pantoprazole Sodium (Protonix Iv) 40 mg IV Q12HR [facility] Last Admin: 08/02/17 09:23 Dose: 40 mg Potassium Chloride (Pharmacy To Dose - Potassium Replacement) 1 dose .XX ASDIRECTED [facility] Sodium Chloride (Saline Flush) 10 ml FLUSH ASDIRECTED PRN PRN Reason: Keep Vein Open Last Admin: 07/30/17 18:49 Dose: 10 ml Temazepam (Restoril) 15 mg PO BEDTIME PRN PRN Reason: Sleep Discontinued Medications Fentanyl (Sublimaze) Confirm Administered Dose 100 mcg .ROUTE .STK-MED ONE Stop: 07/31/17 11:46 Fentanyl (Sublimaze) Confirm Administered Dose 100 mcg .ROUTE .STK-MED ONE Stop: 08/01/17 11:48 Sodium Chloride (Normal Saline) 2,000 mls @ 2,000 mls/hr IV ONETIME ONE Stop: 07/30/17 19:35 Last Admin: 07/30/17 18:48 Dose: 2,000 mls/hr Lactated Ringer's (Ringers, Lactated) 1,000 mls @ 250 mls/hr IV ASDIRECTED [facility] Stop: 07/31/17 00:45 Last Admin: 07/30/17 21:45 Dose: 250 mls/hr Pantoprazole Sodium 80 mg/ (Sodium Chloride) 100 mls @ 10 mls/hr IV Q10H [facility] PRN Reason: 8 MG/HR Last Admin: 07/30/17 21:52 Dose: 8 mg/hr, 10 mls/hr Magnesium Sulfate 2 gm/ Premix 50 mls @ 25 mls/hr IV ONETIME ONE Stop: 07/31/17 00:21 Last Admin: 07/30/17 23:24 Dose: 25 mls/hr Dextrose/Sodium Chloride (Dextrose 5%-1/2 Ns) 1,000 mls @ 125 mls/hr IV ASDIRECTED [facility] Last Admin: 08/01/17 13:04 Dose: 125 mls/hr Lidocaine HCl (Xylocaine-Mpf 1%) Confirm Administered Dose 4 mls @ as directed .ROUTE .STK-MED ONE Stop: 07/31/17 11:44 Sodium Chloride (Normal Saline) 1,000 mls @ 999 mls/hr IV ONETIME ONE Stop: 07/31/17 17:49 Last Admin: 07/31/17 17:08 Dose: 999 mls/hr Sodium Chloride (Normal Saline) 1,000 mls @ 50 mls/hr IV ONETIME ONE Stop: 08/01/17 13:45 Last Admin: 07/31/17 23:30 Dose: 50 mls/hr Magnesium Sulfate 2 gm/ Premix 50 mls @ 25 mls/hr IV ONETIME ONE Stop: 08/01/17 11:59 Last Admin: 08/01/17 10:32 Dose: 25 mls/hr Lidocaine HCl (Xylocaine-Mpf 1%) Confirm Administered Dose 4 mls @ as directed .ROUTE .STK-MED ONE Stop: 08/01/17 11:47 Lactated Ringer's (Ringers, Lactated) Confirm Administered Dose 1,000 mls @ as directed .ROUTE .STK-MED ONE Stop: 08/01/17 11:50 Sodium Ferric Gluconat/Sucrose (250 mg/ Sodium Chloride) 120 mls @ 60 mls/hr IV ONETIME ONE Stop: 08/01/17 18:59 Last Admin: 08/01/17 17:05 Dose: 60 mls/hr Ketamine HCl (Ketalar) Confirm Administered Dose 500 mg .ROUTE .STK-MED ONE Stop: 07/31/17 11:48 Midazolam HCl (Versed 1 Mg/Ml) Confirm Administered Dose 2 mg .ROUTE .STK-MED ONE Stop: 08/01/17 11:48 Pantoprazole Sodium (Protonix Iv) 80 mg IVPUSH .BOLUS ONE Stop: 07/30/17 19:16 Last Admin: 07/30/17 19:23 Dose: 80 mg Polyethylene Glycol/Electrolytes (Golytely) 4,000 ml PO ONETIME ONE Stop: 07/31/17 18:36 Last Admin: 07/31/17 18:46 Dose: 4,000 ml Propofol (Diprivan 20 Ml) Confirm Administered Dose 400 mg .ROUTE .STK-MED ONE Stop: 07/31/17 11:45 Propofol (Diprivan 20 Ml) Confirm Administered Dose 200 mg .ROUTE .STK-MED ONE Stop: 08/01/17 11:47 Propofol (Diprivan 20 Ml) Confirm Administered Dose 200 mg .ROUTE .STK-MED ONE Stop: 08/01/17 12:55 - Exam General: Reports: Alert, Oriented, Cooperative, No Acute Distress HEENT: Reports: Pupils Equal, Pupils Reactive, EOMI, Mucous Membr. Moist/[place] Neck: Reports: Supple, Trachea Midline, No JVD, No Thyromegaly Lungs: Reports: Clear to Auscultation, Normal Respiratory Effort Cardiovascular: Reports: Regular Rate, Regular Rhythm GI/Abdominal Exam: Normal Bowel Sounds, Soft, No Organomegaly, No Distention, No Abnormal Bruit, No Mass, Tender (Mild mid-abdomen tenderness). No: Distended , Guarding, Rigid, Rebound (Male) Exam: Deferred Rectal (Males) Exam: Deferred Back Exam: Reports: Normal Inspection, Decreased Range of Motion Extremities: Normal Inspection, Normal Range of Motion, Non-Tender, No Pedal Edema, Normal Capillary Refill Skin: Reports: Warm, Dry Neurological: Reports: No New Focal Deficit Psy/Mental Status: Reports: Alert, Normal Affect, Normal Mood Physical Findings Comments:: He is clinically and hemodynamically stable *Q Meaningful Use (DIS) - VTE *Q VTE Criteria *Q: - Stroke *Q Stroke Criteria *Q: - AMI *Q AMI Criteria *Q:
[2017-08-02 13:48] VITALS: BP 143/76
--- NOTE | 2017-08-04 08:38 | OR ---
DATE OF OPERATION: 08/01/2017 SURGEON: Star Torres MD PREOPERATIVE DIAGNOSIS: Gastrointestinal bleed. POSTOPERATIVE DIAGNOSIS: Gastrointestinal bleed. OPERATION PERFORMED: Colonoscopy to cecum. FINDINGS: Normal study. There are no angiodysplasias, neoplasias, large tumor masses, ulcerations, hemorrhoids, or diverticulum. DESCRIPTION OF PROCEDURE: The patient was taken to the operating room and placed in the supine position, connected to monitoring equipment, given IV sedation, placed in left lateral position. The perianal area was inspected, was normal. Rectal exam showed good sphincter tone. A video Olympus colonoscope was introduced into the rectum and threaded up without problem to the cecum where the appendicular orifice and ileocecal valve were noted. Dark black tarry stool and remnants in the pools were noted, suggesting episode of bleeding above the colon. Prep was excellent. [place] cleansing score grade D and the scope was slowly withdrawn showing the cecum, ascending colon, transverse colon, descending colon, sigmoid colon, and then rectum. Retroflexed view was done. The patient tolerated the procedure and sent to recovery room in stable condition. The patient will be followed up as needed per Dr. Maldonado. ANESTHESIA: ESTIMATED BLOOD LOSS: MMODAL /[id number]
== END 2017-08-02 14:04 | disposition other institution (70) | DRG 378 ==
LOC: JD.ED 18:23 → JD.ICU 22:22 → EEVIPCON 22:22 → JD.MS 08-01 21:43
PROVIDERS: ADMIT Internal Medicine; ATTEND Internal Medicine
PROC: 0DB68ZX Excision of Stomach, Via Natural or Artificial Opening Endoscopic, Diagnostic (ICD-10-PCS; 2017-07-31)
PROC: 30233N1 Transfusion of Nonautologous Red Blood Cells into Peripheral Vein, Percutaneous Approach (ICD-10-PCS; 2017-07-31)
PROC: 0DJD8ZZ Inspection of Lower Intestinal Tract, Via Natural or Artificial Opening Endoscopic (ICD-10-PCS; principal; 2017-08-01)
DX: K92.1 Melena (principal); E87.2 Acidosis; D50.0 Iron deficiency anemia secondary to blood loss (chronic); K92.0 Hematemesis; I95.1 Orthostatic hypotension; R10.9 Unspecified abdominal pain; R07.9 Chest pain, unspecified; R55 Syncope and collapse; R79.89 Other specified abnormal findings of blood chemistry; E83.42 Hypomagnesemia; F12.10 Cannabis abuse, uncomplicated; J84.10 Pulmonary fibrosis, unspecified
CPT/HCPCS: 00740; 00810; 36415; 36430; 74022; 74022-26; 80053; 80306; 81001; 82272; 83605; 83690; 83735; 84484; 85014; 85018; 85025; 85379; 85610; 85730; 86850; 86900; 86901; 86922; 87040; 87046; 87338; 87427; 87493; 93005; 96360; 96361; 96365; 96376; 99285-25; 99291; A9270-GY; C9113; G0480; J1170; J2060; J2250; J2704; J2916; J3010; J3475; J3490; J7030; J7040; J7042; J7050; J7120; P9016; P9612